=== PATIENT | female | born 1945 | race American Indian/Alaskan Native ===

== ENCOUNTER 2021-02-21 21:57 | Observation (INO) | payer MEDICARE ==
--- NOTE | 2021-02-21 23:01 | Emergency Department Report ---
ED Chest Pain HPI - General Stated Complaint: CHEST PAIN Time Seen by Provider: 02/21/21 22:54 - History of Present Illness Initial Comments: 75-year-old female, history of CVA with left-sided weakness, diabetes, hypertension, hypothyroidism, presents to ED from [facility] with complaint of chest pain, onset this evening. Patient states pain is located in the left chest, radiating down to the left arm. She denies any aggravating or alleviating factors. Patient denies any fever or cough. She reports some slight shortness of breath. She reports nausea as well. MD Complaint: chest pain -: This evening Onset: during rest Pain Location: left chest Pain Radiation: LUE Severity: mild Severity scale (0 -10): 3 Improves With: nothing Worsens With: nothing re: nausea, dyspnea Other Symptoms: denies: cough, fever - Related Data Home Medications Medication Instructions Recorded Confirmed Last Taken Candesartan Cilexetil [Atacand] 16 mg PO DAILY 04/12/20 04/12/20 Unknown Clopidogrel [Plavix] 75 mg PO QDAY 04/12/20 04/12/20 Unknown Glucagon (Human Recomb) [Glucagen] 1 mg SUB-Q QAM&QHS 04/12/20 04/12/20 Unknown Insulin Detemir [Levemir VIAL] 24 unit SUB-Q DAILY 04/12/20 04/12/20 Unknown Levothyroxine [Synthroid] 50 mcg PO DAILY 04/12/20 04/12/20 Unknown NIFEdipine [Nifedipine ER] 90 mg PO DAILY 04/12/20 04/12/20 Unknown Pantoprazole [Protonix TAB] 20 mg QDAY 04/12/20 04/12/20 Unknown Previous Rx's Medication Instructions Recorded Last Taken Type Aspirin EC [Halfprin EC] 81 mg PO QDAY #30 tablet. 04/16/20 Unknown Rx AtorvaSTATin [Lipitor] 40 mg PO QHS tablet 04/16/20 Unknown Rx Docusate Sodium [Colace CAP] 100 mg PO BID capsule 04/16/20 Unknown Rx Losartan [Cozaar] 100 mg PO QAM tablet 04/16/20 Unknown Rx Magnesium Hydroxide [Milk of 30 ml PO Q4H PRN oral.liqd 04/16/20 Unknown Rx Magnesia] Metoprolol Xl [Metoprolol 100 mg PO QDAY tablet 04/16/20 Unknown Rx SUCCINATE ER TAB] hydrALAZINE [Apresoline TAB] 25 mg PO Q8HR tablet 04/16/20 Unknown Rx levETIRAcetam [Keppra TAB] 1,000 mg PO BID #60 tab 04/16/20 Unknown Rx Allergies Allergy/AdvReac Type Severity Reaction Status Date / Time No Known Allergies Allergy Verified 02/22/21 01:57 Heart Score - HEART Score History: Slightly suspicious EKG: Non-specific Age: > 65 Risk factors: > 3 risk factors or hx of atherosclerotic disease Troponin: 1-3x normal limit HEART Score: 6 - EKG Read Time Time EKG Completed: 22:55 EKG Read Time: 22:59 ED Review of Systems ROS: Stated complaint: CHEST PAIN Other details as noted in HPI Comment: All other systems reviewed and negative Constitutional: denies: chills, fever Respiratory: shortness of breath Cardiovascular: chest pain Gastrointestinal: nausea ED Past Medical Hx - Past Medical History Hx Hypertension: Yes Hx Diabetes: Yes Hx Deep Vein Thrombosis: No Hx Arthritis: Yes Hx Seizures: Yes Hx Psychiatric Treatment: Yes (conversion d/o, with seizure and convulsions) Additional medical history: hypothyroidism, cerebral infarction, ulcerative colitis, - Surgical History Hx Pacemaker: No Hx Internal Defibrillator: No - Social History Smoking Status: Former Smoker - Medications Home Medications: Home Medications Medication Instructions Recorded Confirmed Last Taken Type Candesartan Cilexetil [Atacand] 16 mg PO DAILY 04/12/20 04/12/20 Unknown History Clopidogrel [Plavix] 75 mg PO QDAY 04/12/20 04/12/20 Unknown History Glucagon (Human Recomb) [Glucagen] 1 mg SUB-Q QAM&QHS 04/12/20 04/12/20 Unknown History Insulin Detemir [Levemir VIAL] 24 unit SUB-Q DAILY 04/12/20 04/12/20 Unknown History Levothyroxine [Synthroid] 50 mcg PO DAILY 04/12/20 04/12/20 Unknown History NIFEdipine [Nifedipine ER] 90 mg PO DAILY 04/12/20 04/12/20 Unknown History Pantoprazole [Protonix TAB] 20 mg QDAY 04/12/20 04/12/20 Unknown History Aspirin EC [Halfprin EC] 81 mg PO QDAY #30 tablet. 04/16/20 Unknown Rx AtorvaSTATin [Lipitor] 40 mg PO QHS tablet 04/16/20 Unknown Rx Docusate Sodium [Colace CAP] 100 mg PO BID capsule 04/16/20 Unknown Rx Losartan [Cozaar] 100 mg PO QAM tablet 04/16/20 Unknown Rx Magnesium Hydroxide [Milk of 30 ml PO Q4H PRN oral.liqd 04/16/20 Unknown Rx Magnesia] Metoprolol Xl [Metoprolol 100 mg PO QDAY tablet 04/16/20 Unknown Rx SUCCINATE ER TAB] hydrALAZINE [Apresoline TAB] 25 mg PO Q8HR tablet 04/16/20 Unknown Rx levETIRAcetam [Keppra TAB] 1,000 mg PO BID #60 tab 04/16/20 Unknown Rx ED Physical Exam - General General appearance: alert, in no apparent distress - Head Head exam: Present: atraumatic, normocephalic - Eye Eye exam: Present: normal appearance, EOMI - ENT ENT exam: Present: mucous membranes moist - Neck Neck exam: Present: normal inspection - Respiratory Respiratory exam: Present: normal lung sounds bilaterally. Absent: respiratory distress - Cardiovascular Cardiovascular Exam: Present: regular rate, normal rhythm - GI/Abdominal GI/Abdominal exam: Present: soft. Absent: distended, tenderness - Extremities Exam Extremities exam: Absent: pedal edema, calf tenderness - Neurological Exam Neurological exam: Present: alert, oriented X3, motor sensory deficit (Baseline left-sided weakness) - Psychiatric Psychiatric exam: Present: normal affect, normal mood - Skin Skin exam: Present: warm, dry, intact, normal color ED Course Vital Signs 02/21/21 02/21/21 02/21/21 23:00 23:16 23:30 Temperature 98.3 F Pulse Rate 74 70 67 Respiratory 18 18 17 Rate Blood Pressure 161/73 160/70 Blood Pressure 160/70 [Right] O2 Sat by Pulse 98 98 98 Oximetry 02/21/21 02/22/21 02/22/21 23:46 00:00 00:16 Temperature Pulse Rate 65 64 62 Respiratory 20 20 18 Rate Blood Pressure 157/68 153/73 143/69 Blood Pressure [Right] O2 Sat by Pulse 97 97 98 Oximetry 02/22/21 02/22/21 02/22/21 00:30 00:46 01:00 Temperature Pulse Rate 71 63 63 Respiratory 12 19 17 Rate Blood Pressure 158/75 149/68 146/68 Blood Pressure [Right] O2 Sat by Pulse 100 97 98 Oximetry 02/22/21 02/22/21 02/22/21 01:15 01:30 01:46 Temperature Pulse Rate 62 69 74 Respiratory 18 17 17 Rate Blood Pressure 144/64 160/70 151/72 Blood Pressure [Right] O2 Sat by Pulse 96 98 98 Oximetry 02/22/21 02/22/21 02/22/21 02:00 02:16 02:30 Temperature Pulse Rate 70 75 74 Respiratory 16 18 18 Rate Blood Pressure 151/72 151/72 180/70 Blood Pressure [Right] O2 Sat by Pulse 97 97 98 Oximetry 02/22/21 02/22/21 02/22/21 02:46 03:00 03:16 Temperature Pulse Rate 71 69 67 Respiratory 14 17 16 Rate Blood Pressure 159/70 157/64 145/59 Blood Pressure [Right] O2 Sat by Pulse 99 98 98 Oximetry 02/22/21 02/22/21 02/22/21 03:30 03:46 03:50 Temperature Pulse Rate 68 Respiratory 19 18 17 Rate Blood Pressure 140/62 136/55 136/55 Blood Pressure [Right] O2 Sat by Pulse 97 97 97 Oximetry 02/22/21 02/22/21 02/22/21 04:00 04:16 04:30 Temperature Pulse Rate Respiratory 16 6 L 16 Rate Blood Pressure 137/59 133/53 141/59 Blood Pressure [Right] O2 Sat by Pulse 97 97 Oximetry ED Medical Decision Making - Lab Data Result diagrams: 02/21/21 23:19 02/21/21 23:19 - EKG Data -: EKG Interpreted by Dc EKG shows normal: sinus rhythm, axis, intervals, QRS complexes Rate: normal - EKG Data When compared to previous EKG there are: no significant change Interpretation: nonspecific ST-T wave greg - Radiology Data Radiology results: report reviewed, image reviewed - Medical Decision Making 75-year-old female from [facility] with complaint of chest pain. EKG is unremarkable. Troponin slightly elevated at 0.05. Patient was admitted in April 2020. At that time she was seen by cardiology, who wanted to do a stress test on patient, but they could not because she refused due to pain from a sacral decubitus ulcer and stated that she cannot lie flat. Patient given aspirin here in the ED. States her pain is 3 out of 10. Patient will be ad mitted by hospitalist, Dr. Meyer, for further management. - Differential Diagnosis ACS, CHF, pneumonia Critical care attestation.: If time is entered above; I have spent that time in minutes in the direct care of this critically ill patient, excluding procedure time. ED Disposition Clinical Impression: Chest pain, Elevated troponin Disposition: OP ADMIT IP TO THIS HOSP Is pt being admited?: Yes Condition: Stable Time of Disposition: 01:27
--- NOTE | 2021-02-21 23:21 | XRay Report ---
CHEST 1 VIEW 02/21/2021 10:14 PM INDICATION / CLINICAL INFORMATION: chest pain. COMPARISON: 04/14/2020 FINDINGS: SUPPORT DEVICES: None. HEART / MEDIASTINUM: No significant abnormality. LUNGS / PLEURA: No significant pulmonary or pleural abnormality. No pneumothorax. ADDITIONAL FINDINGS: No significant additional findings. IMPRESSION: 1. No acute findings. Signer Name: Rashi Sprague MD Signed: 02/21/2021 11:16 PM Workstation Name: [id number]
[2021-02-22 00:21] LABS: Basophils % (Auto) 0.4 % (0.0-1.8); Eosinophils # (Auto) 0.3 K/mm3 (0.0-0.4); Eosinophils % (Auto) 4.7 % (0.0-4.3); Hematocrit 28.6 % (30.3-42.9); Hemoglobin 9.5 gm/dl (10.1-14.3); Lymphocytes # (Auto) 1.9 K/mm3 (1.2-5.4); Lymphocytes % (Auto) 28.3 % (13.4-35.0); Mean Corpuscular HGB Conc 33 % (30-34); Mean Corpuscular Volume 80 fl (79-97); Monocytes # (Auto) 0.3 K/mm3 (0.0-0.8); Monocytes % (Auto) 5.3 % (0.0-7.3); Platelet Count 317 K/mm3 (140-440); Red Blood Count 3.55 M/mm3 (3.65-5.03); Red Cell Distribution Width 15.6 % (13.2-15.2)
[2021-02-22 00:35] LABS: INR 1.48 (0.87-1.13); Partial Thromboplastin Time 37.5 Sec. (24.2-36.6)
[2021-02-22 00:37] LABS: BUN/Creatinine Ratio 20; Blood Urea Nitrogen 18 mg/dL (7-17); Calcium 8.7 mg/dL (8.4-10.2); Hemolysis Index 10
[2021-02-22] MEDS ORDERED: ASPIRIN 325 MG TAB PO ONE (00:54)
[2021-02-22] MEDS ORDERED: INSULIN REGULAR, HUMAN 100 UNITS/1 ML IV ONE (01:01)
--- NOTE | 2021-02-22 01:51 | History and Physical Report ---
History of Present Illness Date of examination: 02/21/21 Date of admission: 02/21/21 Chief complaint: chest pain History of present illness: 75-year-old female, history of CVA with left-sided weakness, diabetes, hypertension, hypothyroidism, presents to ED from [facility] with complaint of chest pain, onset this evening. Patient states pain is located in the left chest, radiating down to the left arm. She denies any aggravating or alleviating factors. Patient denies any fever or cough. She reports some slight shortness of breath. She reports nausea as well. ED work-up shows WBC 6.6, hemoglobin 9.5, platelets 317 sodium 137, potassium 4.7 creatinine 0.9 glucose 191 troponin 0 0.057 BNP 587 triglycerides 4 8. Chest x-ray done no acute finding patient seen at bedside in the ED. Reviewed medication record, vital signs and medical record. Patient came with from care home with chief complaint of chest pain. Patient has a history of CVA with left sided weakness. Past History Past Medical History: diabetes, heart failure, hyperthyroidism, hypertension Past Surgical History: No surgical history Social history: other (Lives in care home) Family history: no significant family history Medications and Allergies Allergies Allergy/AdvReac Type Severity Reaction Status Date / Time No Known Allergies Allergy Verified 02/22/21 01:57 Home Medications Medication Instructions Recorded Confirmed Last Taken Type Candesartan Cilexetil [Atacand] 16 mg PO DAILY 04/12/20 04/12/20 Unknown History Clopidogrel [Plavix] 75 mg PO QDAY 04/12/20 04/12/20 Unknown History Glucagon (Human Recomb) [Glucagen] 1 mg SUB-Q QAM&QHS 04/12/20 04/12/20 Unknown History Insulin Detemir [Levemir VIAL] 24 unit SUB-Q DAILY 04/12/20 04/12/20 Unknown Hi story Levothyroxine [Synthroid] 50 mcg PO DAILY 04/12/20 04/12/20 Unknown History NIFEdipine [Nifedipine ER] 90 mg PO DAILY 04/12/20 04/12/20 Unknown History Pantoprazole [Protonix TAB] 20 mg QDAY 04/12/20 04/12/20 Unknown History Aspirin EC [Halfprin EC] 81 mg PO QDAY #30 tablet. 04/16/20 Unknown Rx AtorvaSTATin [Lipitor] 40 mg PO QHS tablet 04/16/20 Unknown Rx Docusate Sodium [Colace CAP] 100 mg PO BID capsule 04/16/20 Unknown Rx Losartan [Cozaar] 100 mg PO QAM tablet 04/16/20 Unknown Rx Magnesium Hydroxide [Milk of 30 ml PO Q4H PRN oral.liqd 04/16/20 Unknown Rx Magnesia] Metoprolol Xl [Metoprolol 100 mg PO QDAY tablet 04/16/20 Unknown Rx SUCCINATE ER TAB] hydrALAZINE [Apresoline TAB] 25 mg PO Q8HR tablet 04/16/20 Unknown Rx levETIRAcetam [Keppra TAB] 1,000 mg PO BID #60 tab 04/16/20 Unknown Rx Review of Systems Ears, nose, mouth and throat: no epistaxis, no bleeding gums Cardiovascular: chest pain Respiratory: no shortness of breath Gastrointestinal: no melena Rectal: no hemorrhoids Musculoskeletal: muscle weakness Neurological: no convulsions Psychiatric: no hallucinations Hematologic/Lymphatic: no easy bruising, no easy bleeding Allergic/Immunologic: no urticaria Exam - Constitutional Vitals: Temp Pulse Resp BP Pulse Ox 98.3 F 74 18 160/70 98 02/21/21 23:00 02/21/21 23:00 02/21/21 23:00 02/21/21 23:00 02/21/21 23:00 General appearance: Present: no acute distress, well-nourished - EENT Eyes: Present: PERRL ENT: hearing intact, clear oral mucosa - Neck Neck: Present: supple, normal ROM - Respiratory Respiratory effort: normal Respiratory: bilateral: CTA - Cardiovascular Heart Sounds: Present: S1 & S2. Absent: rub, click - Extremities Extremities: pulses symmetrical, No edema Peripheral Pulses: within normal limits - Abdominal General gastrointestinal: Present: soft, non-tender, non-distended, normal bowel sounds Female genitourinary: Present: normal - Integumentary Integumentary: Present: clear, warm, dry - Musculoskeletal Musculoskeletal: gait normal, strength equal bilaterally - Psychiatric Psychiatric: other - Neurologic Neurologic: CNII-XII intact, moves all extremities - Allied Health Allied health notes reviewed: nursing, PT HEART Score - HEART Score EKG: Non-specific Age: > 65 Risk factors: > 3 risk factors or hx of atherosclerotic disease Troponin: Troponin T 0.057 ng/mL (0.00-0.029) H 02/21/21 23:19 Troponin: 1-3x normal limit Results - Labs CBC & Chem 7: 02/21/21 23:19 02/21/21 23:19 Labs: Abnormal lab results 02/21/21 02/21/21 02/21/21 Range/Units 23:19 23:19 23:19 RBC 3.55 L (3.65-5.03) M/mm3 Hgb 9.5 L (10.1-14.3) gm/dl Hct 28.6 L (30.3-42.9) % MCH 27 L (28-32) pg RDW 15.6 H (13.2-15.2) % Eos % (Auto) 4.7 H (0.0-4.3) % PT 18.4 H (12.2-14.9) Sec. INR 1.48 H (0.87-1.13) APTT 37.5 H (24.2-36.6) Sec. BUN 18 H (7-17) mg/dL Glucose 307 H (65-100) mg/dL Troponin T 0.057 H (0.00-0.029) ng/mL Assessment and Plan - Patient Problems (1) Chest pain Current Visit: Yes Status: Acute Plan to address problem: Sublingual nitro Aspirin, statin, and beta-tiana Chest x-ray no acute finding Elevated troponincardiology consult (2) Hypertension Current Visit: No Status: Chronic Qualifiers: Hypertension type: essential hypertension Qualified Code(s): I10 - Essential (primary) hypertension Plan to address problem: Monitor blood pressure Resume home antihypertensive As needed hydralazine (3) Hypothyroidism Current Visit: No Status: Chronic Plan to address problem: Resume home Synthroid (4) Elevated troponin Current Visit: Yes Status: Acute Plan to address problem: Elevated troponinstrend troponin Troponin was also elevated during the last admission Per patient medical record - was unable to do stress test at the time of the previous admission-patient was not stable Perpetual Inventory Clerk consulted will follow with plan of care (5) Diabetes Current Visit: No Status: Chronic Plan to address problem: Monitor blood sugar with sliding scale To resume home antihypertensive Check hemoglobin A1c. (6) DVT prophylaxis Current Visit: No Status: Acute Plan to address problem: Heparin drip
[2021-02-22] MEDS ORDERED: NITROGLYCERIN 0.4 MG TAB SUBL SL PRN (01:57)
[2021-02-22] MEDS ORDERED: ALUM-MAG HYDROXIDE-SIMETHICONE 200-200-20MG/5ML ORAL LIQD 30 ML PO PRN (01:57)
[2021-02-22] MEDS ORDERED: MAGNESIUM HYDROXIDE (MOM) ORAL LIQD UDC PO PRN (01:57)
[2021-02-22] MEDS ORDERED: traMADol 50 MG TAB PO PRN (01:57)
[2021-02-22] MEDS ORDERED: ACETAMINOPHEN 325 MG TAB PO PRN ×2 (01:57)
[2021-02-22] MEDS ORDERED: METOCLOPRAMIDE 10 MG/2 ML INJ IV PRN (01:57)
[2021-02-22] MEDS ORDERED: ONDANSETRON 4 MG/2 ML INJ IV PRN (01:57)
[2021-02-22] MEDS ORDERED: HEPARIN 10,000 UNITS/10 ML VIAL IV PRN (02:17)
[2021-02-22 02:48] LABS: Chol/HDL Ratio 5.18 %; HDL Cholesterol 33 mg/dL (40-59); LDL Cholesterol,Direct TNR mg/dL (50-130)
[2021-02-22] MEDS: HEPARIN/ 0.45% NACL DRIP 25,000 UNIT/500 ML BAG IV SCH (03:57)
[2021-02-22 05:52] LABS: Basophils % (Auto) 0.6 % (0.0-1.8); Eosinophils # (Auto) 0.5 K/mm3 (0.0-0.4); Eosinophils % (Auto) 6.2 % (0.0-4.3); Hematocrit 28.2 % (30.3-42.9); Hemoglobin 9.5 gm/dl (10.1-14.3); Lymphocytes # (Auto) 2.8 K/mm3 (1.2-5.4); Lymphocytes % (Auto) 35.5 % (13.4-35.0); Mean Corpuscular HGB Conc 34 % (30-34); Mean Corpuscular Volume 80 fl (79-97); Monocytes # (Auto) 0.5 K/mm3 (0.0-0.8); Monocytes % (Auto) 5.9 % (0.0-7.3); Platelet Count 309 K/mm3 (140-440); Red Blood Count 3.54 M/mm3 (3.65-5.03); Red Cell Distribution Width 15.9 % (13.2-15.2)
[2021-02-22] MEDS ORDERED: LEVOTHYROXINE 75 MCG TAB PO SCH (06:00)
[2021-02-22 06:02] LABS: INR 1.76 (0.87-1.13)
[2021-02-22 06:07] LABS: BUN/Creatinine Ratio 21; Blood Urea Nitrogen 19 mg/dL (7-17); Calcium 9.5 mg/dL (8.4-10.2); Hemolysis Index 6
[2021-02-22 06:11] LABS: Partial Thromboplastin Time 168.1 Sec. (24.2-36.6)
[2021-02-22] MEDS: hydrALAZINE 20 MG/1 ML INJ IV PRN (07:16)
--- NOTE | 2021-02-22 07:27 | Event Note ---
Date: 02/21/21 Code MET called-I went to patient room. pt nurse reports patient suddenly become unresponsivie but was able to arouse. At the time of assessment, patient is verbal and responsive to name and place. patient has hx of seizure that is ongoing for about a year. pt also has hx of CVA. PRN ativan and neurologist consult. CT of the head ordered.
[2021-02-22] MEDS ORDERED: LORazepam 2 MG/ML VIAL IV PRN (07:30)
--- NOTE | 2021-02-22 08:52 | Cat Scan Report ---
CT head/brain wo con INDICATION / CLINICAL INFORMATION: 75 years Female; AMS. TECHNIQUE: Routine CT head without contrast. All CT scans at this location are performed using CT dos e reduction for ALARA by means of automated exposure control. COMPARISON: The study is compared to previous CT of 04/14/2020. 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 There is no old infarct along the right ware radiata and basal ganglia wi th ex vacuo dilatation of the right lateral ventricle. The findings correlate with the earlier CT. Th e motion degrades the image quality at. However, there is no clear CT evidence of acute intracranial hemorrhage. There is again note of mild cerebral atrophy. ORBITS: No significant abnormality of visualized orbits. SINUSES / MASTOIDS: There is mild opacification along the posterior sphenoid sinuses was small air-fl uid levels. CRANIOCERVICAL JUNCTION: No significant abnormality. ADDITIONAL FINDINGS: None. IMPRESSION: 1. 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 2. There is no CT evidence of acute intracranial hemorrhage. Signer Name: Epi Norman MD Signed: 02/22/2021 8:48 AM Workstation Name: [id number]
[2021-02-22] MEDS: CLOPIDOGREL 75 MG TAB PO SCH (09:54)
[2021-02-22] MEDS: ASPIRIN EC 81 MG TAB PO SCH (09:54)
[2021-02-22] MEDS: LOSARTAN 50 MG TAB PO SCH (09:54)
[2021-02-22] MEDS: carvediloL 3.125 MG TAB PO SCH ×2 (09:54→21:55)
[2021-02-22] MEDS: PANTOPRAZOLE 40 MG TAB PO SCH (09:54)
[2021-02-22] MEDS: INSULIN LISPRO 100 UNIT/ML SUB-Q SCH ×3 (09:55→17:49)
--- NOTE | 2021-02-22 10:58 | Consultation ---
History of Present Illness Consult date: 02/22/21 Requesting physician: CELINA FERNANDO Consult reason: chest pain History of present illness: This patient is a 75-year-old female with a significant history of CVA with lingering left-sided weakness, diabetes, hypertension, hypothyroidism. She is previously unknown to our practice. Patient presents to [facility] ER after episode of chest pain and shortness of breath times several hours. Patient describes chest pain as left sided substernal and radiating down the left arm, characterized as sharp, and worse with inspiration. Cardiology is consulted for chest pain. At time of interview chest pain is resolved. Patient denies any weakness, dizziness, shortness of breath, abdominal pain, N/V/D, recent illness or known exposures. Patient states she has had previous AMI but denies surgery/cath. Patient is coming from [facility] and is rather poor historian. She is unsure if she is followed by cardiology or primary care. Echocardiogram reviewed (04/2020): Shows EF 55 to 60% Past History Past Medical History: diabetes, heart failure, hyperthyroidism, hypertension, other Past Surgical History: No surgical history Social history: other (Lives in snf) Family history: no significant family history Medications and Allergies Allergies Allergy/AdvReac Type Severity Reaction Status Date / Time No Known Allergies Allergy Verified 02/22/21 01:57 Home Medications Medication Instructions Recorded Confirmed Last Taken Type Candesartan Cilexetil [Atacand] 16 mg PO DAILY 04/12/20 04/12/20 Unknown History Clopidogrel [Plavix] 75 mg PO QDAY 04/12/20 04/12/20 Unknown History Glucagon (Human Recomb) [Glucagen] 1 mg SUB-Q QAM&QHS 04/12/20 04/12/20 Unknown History Insulin Detemir [Levemir VIAL] 24 unit SUB-Q DAILY 04/12/20 04/12/20 Unknown History Levothyroxine [Synthroid] 50 mcg PO DAILY 04/12/20 04/12/20 Unknown History NIFEdipine [Nifedipine ER] 90 mg PO DAILY 04/12/20 04/12/20 Unknown History Pantoprazole [Protonix TAB] 20 mg QDAY 04/12/20 04/12/20 Unknown History Aspirin EC [Halfprin EC] 81 mg PO QDAY #30 tablet. 08/14/20 Unknown Rx AtorvaSTATin [Lipitor] 40 mg PO QHS tablet 04/16/20 Unknown Rx Docusate Sodium [Colace CAP] 100 mg PO BID capsule 04/16/20 Unknown Rx Losartan [Cozaar] 100 mg PO QAM tablet 04/16/20 Unknown Rx Magnesium Hydroxide [Milk of 30 ml PO Q4H PRN oral.liqd 04/16/20 Unknown Rx Magnesia] Metoprolol Xl [Metoprolol 100 mg PO QDAY tablet 04/16/20 Unknown Rx SUCCINATE ER TAB] hydrALAZINE [Apresoline TAB] 25 mg PO Q8HR tablet 04/16/20 Unknown Rx levETIRAcetam [Keppra TAB] 1,000 mg PO BID #60 tab 04/16/20 Unknown Rx Active Meds: Active Medications Acetaminophen (Acetaminophen 325 Mg Tab) 650 mg PO Q4H PRN PRN Reason: Pain MILD(1-3)/Fever >100.5/CARRANZA Al Hydrox/Mg Hydrox/Simethicone (Alum-Mag Hydroxide-Simethicone [id number]/5ml Oral Liqd 30 Ml) 30 ml PO Q4H PRN PRN Reason: Indigestion Aspirin (Aspirin Ec 81 Mg Tab) 81 mg PO QDAY [facility] Last Admin: 02/22/21 09:54 Dose: 81 mg Documented by: Atorvastatin Calcium (Atorvastatin 40 Mg Tab) 40 mg PO QHS [facility] Carvedilol (Carvedilol 3.125 Mg Tab) 3.125 mg PO BID [facility] Last Admin: 02/22/21 09:54 Dose: 3.125 mg Documented by: Clopidogrel Bisulfate (Clopidogrel 75 Mg Tab) 75 mg PO QDAY [facility] Last Admin: 02/22/21 09:54 Dose: 75 mg Documented by: Heparin Sodium (Porcine) (Heparin 10,000 Units/10 Ml Vial) 3,100 unit 40 unit/kg (3100 unit) IV Q6H PRN PRN Reason: Anti-Xa Assay < 0.1 units/ml Last Admin: 02/22/21 03:56 Dose: 3,100 unit Documented by: Hydralazine HCl (Hydralazine 20 Mg/1 Ml Inj) 5 mg IV Q4HR PRN PRN Reason: SBP >/=165; DBP >/=100 Last Admin: 02/22/21 07:16 Dose: 5 mg Documented by: Heparin Sodium/Sodium Chloride (Heparin/ 0.45% Nacl-25,000 Unit/500 Ml) 25,000 unit in 500 mls @ 23 mls/hr IV TITR [facility]; Protocol Last Admin: 02/22/21 03:57 Dose: 1,150 units/hr, 23 mls/hr Documented by: Insulin Glargine (Insulin Glargine 100 Units/Ml) 24 units SUB-Q QHS [facility] Insulin Human Lispro (Insulin Lispro 100 Unit/Ml) 0 unit SUB-Q AC [facility]; Protocol Last Admin: 02/22/21 09:55 Dose: Not Given Documented by: Levothyroxine Sodium (Levothyroxine 75 Mcg Tab) 50 mcg PO DAILY@0600 [facility] Last Admin: 02/22/21 06:35 Dose: 50 mcg Documented by: Lorazepam (Lorazepam 2 Mg/Ml Vial) 2 mg IV Q4H PRN PRN Reason: Seizures Losartan Potassium (Losartan 50 Mg Tab) 100 mg PO QDAY [facility] Last Admin: 02/22/21 09:54 Dose: 100 mg Documented by: Magnesium Hydroxide (Magnesium Hydroxide (Mom) Oral Liqd Udc) 30 ml PO Q4H PRN PRN Reason: Constipation Metoclopramide HCl (Metoclopramide 10 Mg/2 Ml Inj) 10 mg IV Q6H PRN PRN Reason: Nausea And Vomiting Nitroglycerin (Nitroglycerin 0.4 Mg Tab Subl) 0.4 mg SL Q5M PRN PRN Reason: Chest Pain Ondansetron HCl (Ondansetron 4 Mg/2 Ml Inj) 4 mg IV Q8H PRN PRN Reason: Nausea And Vomiting Pantoprazole Sodium (Pantoprazole 40 Mg Tab) 40 mg PO QDAY [facility] Last Admin: 02/22/21 09:54 Dose: 40 mg Documented by: Sodium Chloride (Sodium Chloride 0.9% 10 Ml Flush Syringe) 10 ml IV BID [facility] Last Admin: 02/22/21 09:55 Dose: 10 ml Documented by: Sodium Chloride (Sodium Chloride 0.9% 10 Ml Flush Syringe) 10 ml IV PRN PRN PRN Reason: LINE FLUSH Tramadol HCl (Tramadol 50 Mg Tab) 50 mg PO Q6H PRN PRN Reason: Pain, Moderate (4-6) Review of Systems Constitutional: no weight loss, no weight gain, no fever, no chills, no sweats Ears, nose, mouth and throat: no ear pain, no ear discharge, no nose pain, no nasal congestion, no nasal discharge Cardiovascular: chest pain, shortness of breath, no orthopnea, no palpitations, no rapid/irregular heart beat, no edema, no syncope, no lightheadedness, no dyspnea on exertion, no paroxysmal nocturnal dyspnea, no claudication, no phlebitis, no high blood pressure, no leg edema Respiratory: shortness of breath, no cough, no hemoptysis, no dyspnea on exertion Gastrointestinal: no abdominal pain, no nausea, no vomiting, no diarrhea Genitourinary Female: no flank pain Musculoskeletal: no neck stiffness, no neck pain, no shooting arm pain, no arm numbness/tingling, no low back pain, no shooting leg pain Integumentary: no rash, no pruritis, no redness, no sores, no wounds Neurological: no head injury, no paralysis, no weakness, no parathesias, no numbness, no tingling, no seizures, no syncope Psychiatric: no anxiety Endocrine: no cold intolerance, no heat intolerance Hematologic/Lymphatic: no easy bruising, no easy bleeding Allergic/Immunologic: no urticaria Physical Examination Vital Signs Temp Pulse Resp BP Pulse Ox 98.3 F 74 18 160/70 98 02/21/21 23:00 02/21/21 23:00 02/21/21 23:00 02/21/21 23:00 02/21/21 23:00 General appearance: no acute distress HEENT: Positive: PERRL, Normocephaly, Mucus Membranes Moist Neck: Positive: neck supple, trachea midline Cardiac: Positive: Reg Rate and Rhythm, S1/S2 Lungs: Positive: Normal Exam, Normal Breath Sounds Neuro: Positive: Grossly Intact Abdomen: Positive: Unremarkable, Soft Skin: Negative: Rash, Wound Musculoskeletal: No Pain Extremities: Absent: upper extr. pulses, lower extr. pulses, edema Results 02/22/21 05:02 02/22/21 05:02 Coagulation 02/21/21 02/22/21 Range/Units 23:19 05:02 PT 18.4 H 21.0 H (12.2-14.9) Sec. INR 1.48 H 1.76 H (0.87-1.13) APTT 37.5 H 168.1 H* (24.2-36.6) Sec. Lipids 02/21/21 Range/Units 23:19 Triglycerides 408 H (2-149) mg/dL Cholesterol 171 (50-199) mg/dL HDL Cholesterol 33 L (40-59) mg/dL Cholesterol/HDL Ratio 5.18 % CBC 02/21/21 02/22/21 Range/Units 23:19 05:02 WBC 6.6 7.8 (4.5-11.0) K/mm3 RBC 3.55 L 3.54 L (3.65-5.03) M/mm3 Hgb 9.5 L 9.5 L (10.1-14.3) gm/dl Hct 28.6 L 28.2 L (30.3-42.9) % Plt Count 317 309 (140-440) K/mm3 Lymph # (Auto) 1.9 2.8 (1.2-5.4) K/mm3 [place] # (Auto) 0.3 0.5 (0.0-0.8) K/mm3 Eos # (Auto) 0.3 0.5 H (0.0-0.4) K/mm3 Baso # (Auto) 0.0 0.0 (0.0-0.1) K/mm3 Comprehensive Metabolic Panel 02/21/21 02/22/21 Range/Units 23:19 05:02 Sodium 137 139 (137-145) mmol/L Potassium 4.7 4.4 (3.6-5.0) mmol/L Chloride 100.6 101.0 (98-107) mmol/L Carbon Dioxide 26 26 (22-30) mmol/L BUN 18 H 19 H (7-17) mg/dL Creatinine 0.9 0.9 (0.6-1.2) mg/dL Glucose 307 H 181 H (65-100) mg/dL Calcium 8.7 9.5 (8.4-10.2) mg/dL - Imaging and Cardiology Echo: pending, report reviewed EKG: report reviewed, image reviewed EKG interpretations - Telemetry EKG Rhythm: Sinus Rhythm - EKG Sinus rhythms and dysrhythmias: sinus rhythm Assessment and Plan Chest pain * Chest pain is currently resolved. Twelve-lead ECG shows sinus rhythm 73 with no acute ischemic changes. Troponin is mildly elevated x1, subacute and nonspecific. Continue to trend CE's * Currently on heparin gtt. * Echocardiogram reviewed (04/2020): EF 55 to 60%. Repeat echocardiogram is pending. * Plan for Lexiscan MPI stress test in a.m. N.p.o. after midnight. Hypertension * Optimize antihypertensive regimen: Initiate hydralazine 50 mg 3 times daily, continue Coreg 3.125 mg twice daily, losartan 100 mg daily DVT prophylaxis * Heparin gtt. Stress test in a.m. N.p.o. after midnight. Will follow This patient was seen in conjunction with Dr. Yohan Aguiar who agrees with this assessment plan of care - Patient Problems (1) Chest pain Current Visit: Yes Status: Acute (2) Elevated troponin Current Visit: Yes Status: Acute (3) DVT prophylaxis Current Visit: Yes Status: Acute (4) Diabetes Current Visit: Yes Status: Chronic (5) Hypertension Current Visit: Yes Status: Chronic Qualifiers: Hypertension type: essential hypertension Qualified Code(s): I10 - Ess ential (primary) hypertension (6) Hypothyroidism Current Visit: Yes Status: Chronic
[2021-02-22] MEDS: hydrALAZINE 25 MG TAB PO SCH ×3 (12:58→21:54)
--- NOTE | 2021-02-22 14:14 | Progress Note ---
Assessment and Plan Assessment and plan: Chest pain Sz d/o. Hypertension Hypothyroidism Elebvated troponin DM II 02/22/21. Pt with code met this am due to hyporesponsiveness. CT reveals old infarct but no acute abnormality. Pt will be restarted on home seizure meds of Keppra. Cont. heparin drip and lexiscan in am. Cards following History Interval history: Pt with code met this am due to hyporesponsiveness Hospitalist Physical - Constitutional Vitals: Temp Pulse Resp BP Pulse Ox 98.3 F 87 16 176/86 98 02/22/21 06:58 02/22/21 12:58 02/22/21 06:58 02/22/21 12:58 02/22/21 06:58 General appearance: Present: no acute distress - EENT Eyes: Present: PERRL, EOM intact ENT: hearing intact, clear oral mucosa, dentition normal - Neck Neck: Present: supple, normal ROM - Respiratory Respiratory effort: normal Respiratory: bilateral: CTA - Cardiovascular Rhythm: regular Heart Sounds: Present: S1 & S2. Absent: gallop, rub - Extremities Extremities: no ischemia, No edema, Full ROM - Abdominal General gastrointestinal: soft, non-tender, non-distended, normal bowel sounds - Integumentary Integumentary: Present: clear, warm, dry - Neurologic Neurologic: CNII-XII intact, moves all extremities HEART Score - HEART Score EKG: Non-specific Age: > 65 Risk factors: > 3 risk factors or hx of atherosclerotic disease Troponin: Troponin T 0.057 ng/mL (0.00-0.029) H 02/21/21 23:19 Troponin: 1-3x normal limit Results - Labs CBC & Chem 7: 02/22/21 05:02 02/22/21 05:02 Labs: Laboratory Last Values WBC 7.8 K/mm3 (4.5-11.0) 02/22/21 05:02 RBC 3.54 M/mm3 (3.65-5.03) L 02/22/21 05:02 Hgb 9.5 gm/dl (10.1-14.3) L 02/22/21 05:02 Hct 28.2 % (30.3-42.9) L 02/22/21 05:02 MCV 80 fl (79-97) 02/22/21 05:02 MCH 27 pg (28-32) L 02/22/21 05:02 MCHC 34 % (30-34) 02/22/21 05:02 RDW 15.9 % (13.2-15.2) H 02/22/21 05:02 Plt Count 309 K/mm3 (140-440) 02/22/21 05:02 Lymph % (Auto) 35.5 % (13.4-35.0) H 02/22/21 05:02 [place] % (Auto) 5.9 % (0.0-7.3) 02/22/21 05:02 Eos % (Auto) 6.2 % (0.0-4.3) H 02/22/21 05:02 Baso % (Auto) 0.6 % (0.0-1.8) 02/22/21 05:02 Lymph # (Auto) 2.8 K/mm3 (1.2-5.4) 02/22/21 05:02 [place] # (Auto) 0.5 K/mm3 (0.0-0.8) 02/22/21 05:02 Eos # (Auto) 0.5 K/mm3 (0.0-0.4) H 02/22/21 05:02 Baso # (Auto) 0.0 K/mm3 (0.0-0.1) 02/22/21 05:02 Seg Neutrophils % 51.8 % (40.0-70.0) 02/22/21 05:02 Seg Neutrophils # 4.0 K/mm3 (1.8-7.7) 02/22/21 05:02 PT 21.0 Sec. (12.2-14.9) H 02/22/21 05:02 INR 1.76 (0.87-1.13) H 02/22/21 05:02 APTT 168.1 Sec. (24.2-36.6) H* 02/22/21 05:02 Heparin Anti-Xa Level > 2.00 U.I./ml (0.3-0.7) H 02/22/21 Unknown Sodium 139 mmol/L (137-145) 02/22/21 05:02 Potassium 4.4 mmol/L (3.6-5.0) 02/22/21 05:02 Chloride 101.0 mmol/L (98-107) 02/22/21 05:02 Carbon Dioxide 26 mmol/L (22-30) 02/22/21 05:02 Anion Gap 16 mmol/L 02/22/21 05:02 BUN 19 mg/dL (7-17) H 02/22/21 05:02 Creatinine 0.9 mg/dL (0.6-1.2) 02/22/21 05:02 Estimated GFR > 60 ml/min 02/22/21 05:02 BUN/Creatinine Ratio 21 % 02/22/21 05:02 Glucose 181 mg/dL (65-100) H 02/22/21 05:02 POC Glucose 186 mg/dL (70-105) H 02/22/21 06:58 Hemoglobin A1c 9.5 % (4-6) H 02/22/21 05:02 Calcium 9.5 mg/dL (8.4-10.2) 02/22/21 05:02 Troponin T 0.057 ng/mL (0.00-0.029) H 02/21/21 23:19 NT-Pro-B Natriuret Pep 587.7 pg/mL (0-900) 02/21/21 23:19 Triglycerides 408 mg/dL (2-149) H 02/21/21 23:19 Cholesterol 171 mg/dL (50-199) 02/21/21 23:19 LDL Cholesterol Direct TNR 02/21/21 23:19 HDL Cholesterol 33 mg/dL (40-59) L 02/21/21 23:19 Cholesterol/HDL Ratio 5.18 % 02/21/21 23:19 Mahajan/IV: Voiding Method External Female Catheter Active Medications - Current Medications Current Medications: Generic Name Dose Route Start Last Admin Trade Name Freq PRN Reason Stop Dose Admin Acetaminophen 650 mg 02/22/21 01:57 Acetaminophen 325 Mg Tab PO Q4H PRN Pain MILD(1-3)/Fever >100.5/CARRANZA Al Hydrox/Mg Hydrox/Simethicone 30 ml 02/22/21 01:57 Alum-Mag Hydroxide-Simethicone [id number] Oral Liqd 30 Ml PO Q4H PRN Indigestion Aspirin 81 mg 02/22/21 10:00 02/22/21 09:54 Aspirin Ec 81 Mg Tab PO 81 mg QDAY JORDON Administration Atorvastatin Calcium 40 mg 02/22/21 22:00 Atorvastatin 40 Mg Tab PO QHS JORDON Carvedilol 3.125 mg 02/22/21 10:00 02/22/21 09:54 Carvedilol 3.125 Mg Tab PO 3.125 mg BID JORDON Administration Clopidogrel Bisulfate 75 mg 02/22/21 10:00 02/22/21 09:54 Clopidogrel 75 Mg Tab PO 75 mg QDAY [facility] Administration Heparin Sodium (Porcine) 3,100 unit 02/22/21 02:17 02/22/21 03:56 Heparin 10,000 Units/10 Ml Vial 40 unit/kg (3100 unit) 3,100 unit IV Administration Q6H PRN Anti-Xa Assay < 0.1 units/ml Hydralazine HCl 5 mg 02/22/21 01:55 02/22/21 07:16 Hydralazine 20 Mg/1 Ml Inj IV 5 mg Q4HR PRN Administration SBP >/=165; DBP >/=100 Hydralazine HCl 50 mg 02/22/21 11:03 02/22/21 13:11 Hydralazine 25 Mg Tab PO Not Given Q8HR [facility] Heparin Sodium/Sodium Chloride 25,000 unit in 500 mls @ 23 mls/hr 02/22/21 03:00 02/22/21 13:07 Heparin/ 0.45% Nacl-25,000 Unit/500 Ml IV 1,000 units/hr TITR JORDON 20 mls/hr Titration Protocol 1,150 UNITS/HR Insulin Glargine 24 units 02/22/21 22:00 Insulin Glargine 100 Units/Ml SUB-Q QHS [facility] Insulin Human Lispro 0 unit 02/22/21 07:30 02/22/21 12:56 Insulin Lispro 100 Unit/Ml SUB-Q 3 unit AC [facility] Administration Protocol Levothyroxine Sodium 50 mcg 02/22/21 06:00 02/22/21 06:35 Levothyroxine 75 Mcg Tab PO 50 mcg DAILY@0600 [facility] Administration Lorazepam 2 mg 02/22/21 07:30 Lorazepam 2 Mg/Ml Vial IV Q4H PRN Seizures Losartan Potassium 100 mg 02/22/21 10:00 02/22/21 09:54 Losartan 50 Mg Tab PO 100 mg QDAY [facility] Administration Magnesium Hydroxide 30 ml 02/22/21 01:57 Magnesium Hydroxide (Mom) Oral Liqd Udc PO Q4H PRN Constipation Metoclopramide HCl 10 mg 02/22/21 01:57 Metoclopramide 10 Mg/2 Ml Inj IV Q6H PRN Nausea And Vomiting Nitroglycerin 0.4 mg 02/22/21 01:57 Nitroglycerin 0.4 Mg Tab Subl SL Q5M PRN Chest Pain Ondansetron HCl 4 mg 02/22/21 01:57 Ondansetron 4 Mg/2 Ml Inj IV Q8H PRN Nausea And Vomiting Pantoprazole Sodium 40 mg 02/22/21 10:00 02/22/21 09:54 Pantoprazole 40 Mg Tab PO 40 mg QDAY JORDON Administration Sodium Chloride 10 ml 02/22/21 10:00 02/22/21 09:55 Sodium Chloride 0.9% 10 Ml Flush Syringe IV 10 ml BID [facility]ORDON Administration Sodium Chloride 10 ml 02/22/21 01:57 Sodium Chloride 0.9% 10 Ml Flush Syringe IV PRN PRN LINE FLUSH Tramadol HCl 50 mg 02/22/21 01:57 Tramadol 50 Mg Tab PO Q6H PRN Pain, Moderate (4-6)
[2021-02-22] MEDS: levETIRAcetam 500 MG TAB PO SCH (21:54)
[2021-02-22] MEDS: INSULIN GLARGINE 100 UNITS/ML SUB-Q SCH (21:55)
[2021-02-22] MEDS ORDERED: NON-FORMULARY EACH (Levetiracetam [Keppra Tab] 1,000 MG Tablet) PO SCH (22:00)
[2021-02-22] MEDS ORDERED: hydrALAZINE 25 MG TAB PO SCH (22:00)
[2021-02-23] MEDS: hydrALAZINE 20 MG/1 ML INJ IV PRN ×2 (04:45→14:29)
[2021-02-23 05:38] LABS: Basophils # (Auto) 0.3 K/mm3 (0.0-0.1); Eosinophils # (Auto) 0.4 K/mm3 (0.0-0.4); Eosinophils % (Auto) 3.7 % (0.0-4.3); Hematocrit 30.2 % (30.3-42.9); Hemoglobin 9.8 gm/dl (10.1-14.3); Lymphocytes # (Auto) 1.7 K/mm3 (1.2-5.4); Lymphocytes % (Auto) 17.1 % (13.4-35.0); Mean Corpuscular HGB Conc 33 % (30-34); Mean Corpuscular Volume 81 fl (79-97); Monocytes # (Auto) 0.2 K/mm3 (0.0-0.8); Monocytes % (Auto) 2.4 % (0.0-7.3); Platelet Count 336 K/mm3 (140-440); Red Blood Count 3.73 M/mm3 (3.65-5.03); Red Cell Distribution Width 15.9 % (13.2-15.2)
[2021-02-23 06:13] LABS: Alanine Aminotransferase 11 units/L (7-56); Albumin 3.6 g/dL (3.9-5); BUN/Creatinine Ratio 17; Blood Urea Nitrogen 15 mg/dL (7-17); Calcium 8.9 mg/dL (8.4-10.2); Hemolysis Index 3
[2021-02-23] MEDS: LEVOTHYROXINE 50 MCG TAB PO SCH (06:54)
[2021-02-23] MEDS: hydrALAZINE 25 MG TAB PO SCH ×2 (06:55→14:29)
[2021-02-23] MEDS: HEPARIN/ 0.45% NACL DRIP 25,000 UNIT/500 ML BAG IV SCH (06:55)
[2021-02-23] MEDS ORDERED: REGADENOSON 0.4 MG/5 ML INJ IV ONE (08:15)
--- NOTE | 2021-02-23 08:21 | Discharge Summary ---
Providers - Providers Date of Admission: 02/22/21 01:42 Date of discharge: 02/23/21 Attending physician: KEYSHA CHESTER 02/22/21 Consult to Cardiac Rehabilitation [CONS] Routine Reason For Exam: Phase I 02/22/21 03:17 Consult to Physician [CONS] Routine Comment: Consulting Provider: LEANDRA OLIVERA Physician Instructions: Reason For Exam: chest pain 02/22/21 06:05 Consult to Wound/ET Nurse [CONS] Routine Reason For Exam: wound eval Primary care physician: RADAMES HULL Hospitalization Reason for admission: cp Condition: Stable Hospital course: 75-year-old female with a significant history of CVA with lingering left-sided weakness, diabetes, seizure disorder, hypertension, hypothyroidism presented to [facility] ER after episode of chest pain and shortness of breath times several hours. Patient described chest pain as left sided substernal and radiating down the left arm, characterized as sharp, and worse with inspiration. The patient was admitted with diagnosis of chest pain, diabetes mellitus type 2, chronic diastolic heart failure, hypothyroidism and hypertension. Cardiology was consulted for chest pain. Patient stated she has had previous AMI but denies surgery/cath. Patient is coming from [facility] and is rather poor historian. She is unsure if she is followed by cardiology or primary care. Cardiology recommended echocardiogram and Lexiscan stress test. Other complications during hospital stay included a seizure which occurred after admission and patient does have a history. Patient was restarted on her antiseizure medications and had no other episodes. Patient will undergo stress test today and if the stress test is found to be negative, patient will be discharged back to [facility] with diagnosis of GERD. Dedicated discharge time 35 minutes. Disposition: [id number]/[id number] [facility] C[facility] Final Discharge Diagnosis (Prints w/discharge instructions): chest pain, diabetes mellitus type 2, chronic diastolic heart failure, hypothyroidism and hypertension GERD Core Measure Documentation - Palliative Care Palliative Care/ Comfort Measures: Not Applicable - Core Measures Any of the following diagnoses?: none Exam - Constitutional Vitals: Temp Pulse Resp BP Pulse Ox 98.5 F 98 H 20 229/79 96 02/23/21 03:48 02/23/21 06:55 02/23/21 03:48 02/23/21 04:45 02/23/21 03:48 General appearance: Present: no acute distress, well-nourished - EENT Eyes: Present: PERRL ENT: hearing intact, clear oral mucosa - Neck Neck: Present: supple, normal ROM - Respiratory Respiratory effort: normal Respiratory: bilateral: CTA - Cardiovascular Heart Sounds: Present: S1 & S2. Absent: rub, click - Extremities Extremities: pulses symmetrical, No edema Peripheral Pulses: within normal limits - Abdominal General gastrointestinal: Present: soft, non-tender, non-distended, normal bowel sounds Female genitourinary: Present: normal - Integumentary Integumentary: Present: clear, warm, dry - Musculoskeletal Musculoskeletal: gait normal, strength equal bilaterally - Psychiatric Psychiatric: appropriate mood/affect, intact judgment & insight - Neurologic Neurologic: CNII-XII intact, moves all extremities Plan Activity: advance as tolerated Weight Bearing Status: Weight Bear as Tolerated Diet: low fat, low cholesterol, low salt Follow up with: RADAMES HULL MD [Primary Care Provider] - 3-5 Days
[2021-02-23] MEDS ORDERED: CANDESARTAN CILEXETIL 16 MG PO SCH (10:00)
[2021-02-23] MEDS ORDERED: NIFEDIPINE 90 MG PO SCH (10:00)
[2021-02-23] MEDS ORDERED: NIFEdipine XL 90 MG TAB PO SCH (10:00)
[2021-02-23] MEDS ORDERED: ASPIRIN EC 81 MG TAB PO SCH (10:00)
[2021-02-23] MEDS ORDERED: LEVOTHYROXINE 50 MCG TAB PO SCH (10:00)
[2021-02-23] MEDS ORDERED: NON-FORMULARY EACH (Insulin Detemir [Levemir Vial] 100 UNIT/ML Vial) SUB-Q SCH (10:00)
[2021-02-23] MEDS ORDERED: LOSARTAN 50 MG TAB PO SCH (10:00)
[2021-02-23] MEDS ORDERED: ASPIRIN EC 325 MG TAB PO SCH (10:00)
[2021-02-23] MEDS ORDERED: METOPROLOL SUCCINATE XL 100 MG TAB PO SCH (10:00)
[2021-02-23] MEDS ORDERED: PANTOPRAZOLE 20 MG TAB PO SCH (10:00)
[2021-02-23] MEDS: CLOPIDOGREL 75 MG TAB PO SCH (10:39)
[2021-02-23] MEDS: levETIRAcetam 500 MG TAB PO SCH ×2 (10:39→21:04)
[2021-02-23] MEDS: carvediloL 3.125 MG TAB PO SCH (10:39)
[2021-02-23] MEDS: ASPIRIN EC 81 MG TAB PO SCH (10:39)
[2021-02-23] MEDS: LOSARTAN 50 MG TAB PO SCH (10:39)
[2021-02-23] MEDS: PANTOPRAZOLE 40 MG TAB PO SCH (10:39)
[2021-02-23] MEDS: INSULIN LISPRO 100 UNIT/ML SUB-Q SCH ×3 (10:40→17:19)
[2021-02-23] MEDS ORDERED: carvediloL 12.5 MG TAB PO SCH (13:39)
--- NOTE | 2021-02-23 16:16 | Progress Note ---
Assessment and Plan Chest pain * Chest pain is currently resolved. Twelve-lead ECG shows sinus rhythm 73 with no acute ischemic changes. Troponin is mildly elevated x3, subacute, unchanging and nonspecific. Continue to trend CE's * Echocardiogram reviewed (02/22/2021): LVEF is 55 to 60%. Left ventricle is normal size. LV SF is normal. Mild LVH. Mild diastolic dysfunction. RV SF is normal. * Lexiscan MPI stress test is negative for reversible ischemia Hypertension * Optimize antihypertensive regimen: Initiate clonidine 0.1 mg twice daily, continue hydralazine 50 mg 3 times daily, increase nifedipine XL 92 twice daily, continue losartan 100 mg twice daily DVT prophylaxis * Heparin gtt. Patient currently in stable cardiac status. Stress test is negative. Anticipate discharge once hypertension is controlled. We will follow This patient was seen in conjunction with Dr. Yohan Aguiar who agrees with this assessment plan of care - Patient Problems (1) Chest pain Current Visit: Yes Status: Acute (2) Elevated troponin Current Visit: Yes Status: Acute (3) DVT prophylaxis Current Visit: Yes Status: Acute (4) Diabetes Current Visit: Yes Status: Chronic (5) Hypertension Current Visit: Yes Status: Chronic Qualifiers: Hypertension type: essential hypertension Qualified Code(s): I10 - Essential (primary) hypertension (6) Hypothyroidism Current Visit: Yes Status: Chronic Subjective Date of service: 02/23/21 Principal diagnosis: Chest Pain Interval history: Patient resting comfortably in bed. No shortness of breath or chest pain overnight Telemetry reviewed: Sinus tach 110s. No events Objective Last Vital Signs Temp 99.2 F 02/23/21 11:55 Pulse 121 H 02/23/21 11:55 Resp 19 02/23/21 11:55 BP 220/98 02/23/21 14:29 Pulse Ox 97 02/23/21 11:55 - Physical Examination HEENT: Positive: PERRL, Normocephaly, Mucus Membranes Moist Neck: Positive: neck supple, trachea midline Cardiac: Positive: Regular Rhythm, S1/S2 Lungs: Positive: Normal Exam, Normal Breath Sounds ( ) Neuro: Positive: Grossly Intact Abdomen: Positive: Unremarkable, Soft Skin: Negative: Rash, Wound Musculoskeletal: No Pain Extremities: Absent: upper extr. pulses, lower extr. pulses, edema - Labs and Meds Cardiac Enzymes 02/23/21 Range/Units 04:51 AST 17 (5-40) units/L CBC 06/23/21 Range/Units 04:51 WBC 10.2 (4.5-11.0) K/mm3 RBC 3.73 (3.65-5.03) M/mm3 Hgb 9.8 L (10.1-14.3) gm/dl Hct 30.2 L (30.3-42.9) % Plt Count 336 (140-440) K/mm3 Lymph # (Auto) 1.7 (1.2-5.4) K/mm3 [place] # (Auto) 0.2 (0.0-0.8) K/mm3 Eos # (Auto) 0.4 (0.0-0.4) K/mm3 Baso # (Auto) 0.3 H (0.0-0.1) K/mm3 Comprehensive Metabolic Panel 02/23/21 Range/Units 04:51 Sodium 137 (137-145) mmol/L Potassium 3.9 (3.6-5.0) mmol/L Chloride 100.7 (98-107) mmol/L Carbon Dioxide 27 (22-30) mmol/L BUN 15 (7-17) mg/dL Creatinine 0.9 (0.6-1.2) mg/dL Glucose 202 H (65-100) mg/dL Calcium 8.9 (8.4-10.2) mg/dL AST 17 (5-40) units/L ALT 11 (7-56) units/L Alkaline Phosphatase 103 (35-129) units/L Total Protein 8.2 (6.3-8.2) g/dL Albumin 3.6 L (3.9-5) g/dL - Imaging and Cardiology EKG: report reviewed, image reviewed Echo: report reviewed (Echocardiogram reviewed (02/22/2021): LVEF is 55 to 60%. Left ventricle is normal size. LV SF is normal. Mild LVH. Mild diastolic dysfunction. RV SF is normal.) - Telemetry EKG Rhythm: Sinus Tachycardia - EKG Sinus rhythms and dysrhythmias: sinus rhythm
[2021-02-23] MEDS ORDERED: cloNIDine 0.1 MG TAB PO SCH (17:00)
[2021-02-23] MEDS ORDERED: NIFEdipine XL 90 MG TAB PO ONE (18:02)
[2021-02-23] MEDS: NIFEdipine XL 90 MG TAB PO SCH ×2 (18:03→21:05)
[2021-02-23] MEDS ORDERED: hydrALAZINE 25 MG TAB PO ONE (18:58)
--- NOTE | 2021-02-23 19:18 | Electrocardiograph Report ---
[facility] Test Date: 2021-02-21 Test Time: 22:55:26 Pat Name: SHO HEAD Department: Room: A479 1 Gender: F [employer]er[employer] Supervisor: LAMBERT : 1945 Requested By: JA TURNER Order Number: [id number] Reading MD: Alicia Christianson Measurements Intervals [place] Rate: 73 P: 50 IN: 139 QRS: 5 QRSD: 79 T: 102 QT: 364 QTc: 402 Interpretive Statements Sinus rhythm Nonspecific T abnormalities, lateral leads No previous ECG available for comparison Electronically Signed On 02-23-2021 19:17:33 EDT by Alicia Christianson
--- NOTE | 2021-02-23 19:22 | Electrocardiograph Report ---
[facility] Test Date: 2021-02-22 Test Time: 07:48:56 Pat Name: SHO HEAD Department: Room: A479 1 Gender: F [employer] Instructor: DWAYNE : 1945 Requested By: CELINA FERNANDO Order Number: [id number] Reading MD: Alicia Christianson Measurements Intervals [place] Rate: 79 P: 50 IN: 143 QRS: -6 QRSD: 81 T: 20 QT: 396 QTc: 455 Interpretive Statements Sinus rhythm Compared to ECG 02/21/2021 22:55:26 No significant change Electronically Signed On 02-23-2021 19:21:51 EDT by Alicia Christianson
--- NOTE | 2021-02-23 19:23 | Electrocardiograph Report ---
[facility] Test Date: 2021-02-22 Test Time: 11:51:06 Pat Name: SHO HEAD Department: Room: A479 1 Gender: F Paid Search Specialist: DWAYNE : 1945 Requested By: CELINA FERNANDO Order Number: [id number] Reading MD: Alicia Christianson Measurements Intervals [place] Rate: 86 P: 78 CA: 133 QRS: 7 QRSD: 81 T: 69 QT: 372 QTc: 446 Interpretive Statements Sinus rhythm Compared to ECG 02/22/2021 07:48:56 No significant changes Electronically Signed On 02-23-2021 19:22:59 EDT by Alicia Christianson
[2021-02-23] MEDS: hydrALAZINE 100 MG TAB PO SCH (20:56)
[2021-02-23] MEDS: cloNIDine 0.2 MG TAB PO SCH (21:04)
[2021-02-23] MEDS: INSULIN GLARGINE 100 UNITS/ML SUB-Q SCH (21:06)
[2021-02-24 05:12] LABS: Hematocrit 28.5 % (30.3-42.9); Hemoglobin 9.4 gm/dl (10.1-14.3)
[2021-02-24] MEDS: LEVOTHYROXINE 50 MCG TAB PO SCH (05:20)
[2021-02-24] MEDS: INSULIN LISPRO 100 UNIT/ML SUB-Q SCH ×2 (08:00→11:56)
--- NOTE | 2021-02-24 08:04 | Progress Note ---
Assessment and Plan Assessment and plan: Chest pain Sz d/o. Accelerated hypertension Hypothyroidism Elebvated troponin DM II 02/22/21. Pt with code met this am due to hyporesponsiveness. CT reveals old infarct but no acute abnormality. Pt will be restarted on home seizure meds of Keppra. Cont. heparin drip and lexiscan in am. Cards following 02/23/2021. Patient with stress test that was found to be negative for ischemia. However, patient with accelerated hypertension with systolic blood pressure over 200. Patient's blood pressure medications were adjusted and discharge was suspended. Patient's blood pressure will be monitored overnight. History Interval history: Pt with code met this am due to hyporesponsiveness Hospitalist Physical - Constitutional Vitals: Temp Pulse Resp BP Pulse Ox 98.1 F 82 20 105/56 89 02/24/21 04:13 02/24/21 04:13 02/24/21 04:13 02/24/21 04:13 02/24/21 04:13 General appearance: Present: no acute distress, well-nourished - EENT Eyes: Present: PERRL, EOM intact ENT: hearing intact, clear oral mucosa, dentition normal - Neck Neck: Present: supple, normal ROM - Respiratory Respiratory effort: normal Respiratory: bilateral: CTA - Cardiovascular Rhythm: regular Heart Sounds: Present: S1 & S2. Absent: gallop, rub - Extremities Extremities: no ischemia, No edema, Full ROM - Abdominal General gastrointestinal: soft, non-tender, non-distended, normal bowel sounds - Integumentary Integumentary: Present: clear, warm, dry - Neurologic Neurologic: CNII-XII intact, moves all extremities HEART Score - HEART Score EKG: Non-specific Age: > 65 Risk factors: > 3 risk factors or hx of atherosclerotic disease Troponin: Troponin T 0.054 ng/mL (0.00-0.029) H 02/23/21 04:51 Troponin: 1-3x normal limit Results - Labs CBC & Chem 7: 02/24/21 04:28 02/23/21 04:51 Labs: Laboratory Last Values WBC 10.2 K/mm3 (4.5-11.0) 02/23/21 04:51 RBC 3.73 M/mm3 (3.65-5.03) 02/23/21 04:51 Hgb 9.4 gm/dl (10.1-14.3) L 02/24/21 04:28 Hct 28.5 % (30.3-42.9) L 02/24/21 04:28 MCV 81 fl (79-97) 02/23/21 04:51 MCH 26 pg (28-32) L 02/23/21 04:51 MCHC 33 % (30-34) 02/23/21 04:51 RDW 15.9 % (13.2-15.2) H 02/23/21 04:51 Plt Count 327 K/mm3 (140-440) 02/24/21 04:28 Lymph % (Auto) 17.1 % (13.4-35.0) 02/23/21 04:51 [place] % (Auto) 2.4 % (0.0-7.3) 02/23/21 04:51 Eos % (Auto) 3.7 % (0.0-4.3) 02/23/21 04:51 Baso % (Auto) 3.0 % (0.0-1.8) H 02/23/21 04:51 Lymph # (Auto) 1.7 K/mm3 (1.2-5.4) 02/23/21 04:51 [place] # (Auto) 0.2 K/mm3 (0.0-0.8) 02/23/21 04:51 Eos # (Auto) 0.4 K/mm3 (0.0-0.4) 02/23/21 04:51 Baso # (Auto) 0.3 K/mm3 (0.0-0.1) H 02/23/21 04:51 Seg Neutrophils % 73.8 % (40.0-70.0) H 02/23/21 04:51 Seg Neutrophils # 7.5 K/mm3 (1.8-7.7) 02/23/21 04:51 PT 21.0 Sec. (12.2-14.9) H 02/22/21 05:02 INR 1.76 (0.87-1.13) H 02/22/21 05:02 APTT 168.1 Sec. (24.2-36.6) H* 02/22/21 05:02 Heparin Anti-Xa Level 0.78 U.I./ml (0.3-0.7) H 02/23/21 18:18 Sodium 137 mmol/L (137-145) 02/23/21 04:51 Potassium 3.9 mmol/L (3.6-5.0) 02/23/21 04:51 Chloride 100.7 mmol/L (98-107) 02/23/21 04:51 Carbon Dioxide 27 mmol/L (22-30) 02/23/21 04:51 Anion Gap 13 mmol/L 02/23/21 04:51 BUN 15 mg/dL (7-17) 02/23/21 04:51 Creatinine 0.9 mg/dL (0.6-1.2) 02/23/21 04:51 Estimated GFR > 60 ml/min 02/23/21 04:51 BUN/Creatinine Ratio 17 % 02/23/21 04:51 Glucose 202 mg/dL (65-100) H 02/23/21 04:51 POC Glucose 260 mg/dL (70-105) H 02/24/21 07:46 Hemoglobin A1c 9.5 % (4-6) H 02/22/21 05:02 Calcium 8.9 mg/dL (8.4-10.2) 02/23/21 04:51 Total Bilirubin 0.20 mg/dL (0.1-1.2) 02/23/21 04:51 AST 17 units/L (5-40) 02/23/21 04:51 ALT 11 units/L (7-56) 02/23/21 04:51 Alkaline Phosphatase 103 units/L (35-129) 02/23/21 04:51 Troponin T 0.054 ng/mL (0.00-0.029) H 02/23/21 04:51 NT-Pro-B Natriuret Pep 587.7 pg/mL (0-900) 02/21/21 23:19 Total Protein 8.2 g/dL (6.3-8.2) 02/23/21 04:51 Albumin 3.6 g/dL (3.9-5) L 02/23/21 04:51 Albumin/Globulin Ratio 0.8 % 02/23/21 04:51 Triglycerides 408 mg/dL (2-149) H 02/21/21 23:19 Cholesterol 171 mg/dL (50-199) 06/21/21 23:19 LDL Cholesterol Direct TNR 06/21/21 23:19 HDL Cholesterol 33 mg/dL (40-59) L 02/21/21 23:19 Cholesterol/HDL Ratio 5.18 % 02/21/21 23:19 Mahajan/IV: Voiding Method External Female Catheter Active Medications - Current Medications Current Medications: Generic Name Dose Route Start Last Admin Trade Name Freq PRN Reason Stop Dose Admin Acetaminophen 650 mg 02/22/21 01:57 Acetaminophen 325 Mg Tab PO Q4H PRN Pain MILD(1-3)/Fever >100.5/CARRANZA Al Hydrox/Mg Hydrox/Simethicone 30 ml 02/22/21 01:57 Alum-Mag Hydroxide-Simethicone [id number]/5ml Oral Liqd 30 Ml PO Q4H PRN Indigestion Aspirin 81 mg 02/22/21 10:00 02/23/21 10:39 Aspirin Ec 81 Mg Tab PO 81 mg QDAY JORDON Administration Atorvastatin Calcium 40 mg 02/22/21 22:00 02/23/21 21:05 Atorvastatin 40 Mg Tab PO 40 mg QHS JORDON Administration Clonidine HCl 0.2 mg 02/23/21 22:00 02/23/21 21:04 Clonidine 0.2 Mg Tab PO 0.2 mg Q12HR JORDON Administration Clopidogrel Bisulfate 75 mg 02/22/21 10:00 02/23/21 10:39 Clopidogrel 75 Mg Tab PO 75 mg QDAY JORDON Administration Heparin Sodium (Porcine) 3,100 unit 02/22/21 02:17 02/22/21 03:56 Heparin 10,000 Units/10 Ml Vial 40 unit/kg (3100 unit) 3,100 unit IV Administration Q6H PRN Anti-Xa Assay < 0.1 units/ml Hydralazine HCl 5 mg 02/22/21 01:55 02/23/21 14:29 Hydralazine 20 Mg/1 Ml Inj IV 5 mg Q4HR PRN Administration SBP >/=165; DBP >/=100 Hydralazine HCl 100 mg 02/23/21 20:00 02/23/21 20:56 Hydralazine 100 Mg Tab PO 100 mg TID JORDON Administration Heparin Sodium/Sodium Chloride 25,000 unit in 500 mls @ 23 mls/hr 02/22/21 03:00 02/23/21 06:59 Heparin/ 0.45% Nacl-25,000 Unit/500 Ml IV 850 units/hr TITR JORDON 17 mls/hr Titration Protocol 1,150 UNITS/HR Insulin Glargine 24 units 02/22/21 22:00 02/23/21 21:06 Insulin Glargine 100 Units/Ml SUB-Q 24 units QHS JORDON Administration Insulin Human Lispro 0 unit 02/22/21 07:30 02/23/21 17:19 Insulin Lispro 100 Unit/Ml SUB-Q 2 unit AC JORDON Administration Protocol Levetiracetam 1,000 mg 02/22/21 22:00 02/23/21 21:04 Levetiracetam 500 Mg Tab PO 1,000 mg BID JORDON Administration Levothyroxine Sodium 50 mcg 02/23/21 06:00 02/24/21 05:20 Levothyroxine 50 Mcg Tab PO 50 mcg DAILY@0600 [facility] Administration Lorazepam 2 mg 02/22/21 07:30 Lorazepam 2 Mg/Ml Vial IV Q4H PRN Seizures Losartan Potassium 100 mg 02/22/21 10:00 02/23/21 10:39 Losartan 50 Mg Tab PO 100 mg QDAY [facility] Administration Magnesium Hydroxide 30 ml 02/22/21 01:57 Magnesium Hydroxide (Mom) Oral Liqd Udc PO Q4H PRN Constipation Metoclopramide HCl 10 mg 02/22/21 01:57 Metoclopramide 10 Mg/2 Ml Inj IV Q6H PRN Nausea And Vomiting Nifedipine 90 mg 02/23/21 22:00 02/23/21 21:05 Nifedipine Xl 90 Mg Tab PO 90 mg BID JORDON Administration Nitroglycerin 0.4 mg 02/22/21 01:57 Nitroglycerin 0.4 Mg Tab Subl SL Q5M PRN Chest Pain Ondansetron HCl 4 mg 02/22/21 01:57 02/23/21 17:23 Ondansetron 4 Mg/2 Ml Inj IV 4 mg Q8H PRN Administration Nausea And Vomiting Pantoprazole Sodium 40 mg 02/22/21 10:00 02/23/21 10:39 Pantoprazole 40 Mg Tab PO 40 mg QDAY [facility] Administration Sodium Chloride 10 ml 02/22/21 10:00 02/23/21 21:11 Sodium Chloride 0.9% 10 Ml Flush Syringe IV Not Given BID [facility] Sodium Chloride 10 ml 02/22/21 01:57 Sodium Chloride 0.9% 10 Ml Flush Syringe IV PRN PRN LINE FLUSH Tramadol HCl 50 mg 02/22/21 01:57 Tramadol 50 Mg Tab PO Q6H PRN Pain, Moderate (4-6)
[2021-02-24] MEDS: PANTOPRAZOLE 40 MG TAB PO SCH (09:46)
[2021-02-24] MEDS: CLOPIDOGREL 75 MG TAB PO SCH (09:46)
[2021-02-24] MEDS: levETIRAcetam 500 MG TAB PO SCH (09:46)
[2021-02-24] MEDS: ASPIRIN EC 81 MG TAB PO SCH (09:46)
[2021-02-24] MEDS: hydrALAZINE 100 MG TAB PO SCH (09:47)
[2021-02-24] MEDS: cloNIDine 0.2 MG TAB PO SCH (09:47)
[2021-02-24 09:48] VITALS: BP 110/53
[2021-02-24] MEDS: NIFEdipine XL 90 MG TAB PO SCH (09:48)
[2021-02-24] MEDS: LOSARTAN 50 MG TAB PO SCH (09:48)
--- NOTE | 2021-02-24 11:08 | Treadmill Report ---
DATE OF SERVICE: 02/22/2021 NUCLEAR PERFUSION SCAN REFERRING PHYSICIAN: Hospitalist erika. PROTOCOL: The patient was brought to the stress lab in postabsorptive state, given 10 mCi of technetium at rest. The patient had rest imaging. The patient had Lexiscan stress test. At peak stress, the patient given 26 mCi technetium 99m. Shortly thereafter, the patient had stress imaging. Raw imaging reveals mild GI artifact. No significant motion effect. SPECT images examined carefully in the horizontal long axis, vertical long axis, and short axis views. There is normal homogeneous uptake of radioisotope in all reported segments. No evidence of significant fixed or reversible perfusion defect, suggestive of prior infarction or ischemia. Gated wall motion reveals normal systolic thickening, calculated ejection fraction of 66%. No TID. CONCLUSIONS: 1. Normal myocardial perfusion scan without evidence of active ischemia or prior infarction. 2. Normal left ventricular systolic performance without evidence of transient ischemic dilatation or stress induced segmental wall motion abnormalities. TID: [id number] RECEIPT: [id number] [facility]/ALL
--- NOTE | 2021-02-24 17:00 | Progress Note ---
Assessment and Plan BP has significantly improved this AM. Currently stable cardiac status. Pt may be discharged from a Cardiology standpoint. Recommend follow-up with Dr. Georgia Aguiar in 1-2 weeks ([phone]). Pt seen in conjunction with Dr. Georgia Aguiar, who agrees with the assessment and plan of care. - Patient Problems (1) Chest pain Status: Resolved (2) Elevated troponin Status: Acute (3) Accelerated hypertension Status: Acute (4) DM2 (diabetes mellitus, type 2) Status: Chronic (5) Hypothyroidism Status: Chronic (6) Seizures Status: Chronic (7) History of CVA (cerebrovascular accident) Status: Chronic Subjective Date of service: 02/24/21 Principal diagnosis: Chest Pain Interval history: Resting comfortably in bed. States she feels great. No cardiac complaints. No tele data available for review. Objective Last Vital Signs Temp 98.5 F 02/24/21 07:43 Pulse 89 02/24/21 10:00 Resp 19 02/24/21 10:00 BP 110/53 02/24/21 09:48 Pulse Ox 96 02/24/21 09:43 - Physical Examination General: No Apparent Distress HEENT: Positive: EOMI, Normocephaly, Mucus Membranes Moist Neck: Positive: neck supple, trachea midline. Negative: JVD/HJR Cardiac: Positive: Reg Rate and Rhythm, S1/S2 Lungs: Positive: clear to auscultation Neuro: Positive: Grossly Intact Abdomen: Positive: Soft. Negative: Tender Skin: Negative: Rash Musculoskeletal: No Pain Extremities: Present: upper extr. pulses, lower extr. pulses. Absent: edema - Labs and Meds CBC 02/24/21 Range/Units 04:28 Hgb 9.4 L (10.1-14.3) gm/dl Hct 28.5 L (30.3-42.9) % Plt Count 327 (140-440) K/mm3 - Imaging and Cardiology EKG: report reviewed, image reviewed Pharmacologic stress test: report reviewed (02/22/2021 - negative for ischemia) Echo: report reviewed (02/22/2021 - EF 55-60%, mild LVH, mild diastolic dysfxn) - EKG Sinus rhythms and dysrhythmias: sinus rhythm
== END 2021-02-24 13:36 ==
LOC: ED 21:57 → 4A 02-22 01:42
PROVIDERS: ADMIT Internal Medicine Geriatric Medicine; ATTEND Hospitalist
DX: R07.89 Other chest pain (principal); Z20.822 Contact with and (suspected) exposure to COVID-19; I11.0 Hypertensive heart disease with heart failure; I50.9 Heart failure, unspecified; E03.9 Hypothyroidism, unspecified; E11.9 Type 2 diabetes mellitus without complications; R77.8 Other specified abnormalities of plasma proteins; E05.90 Thyrotoxicosis, unspecified without thyrotoxic crisis or storm; M19.90 Unspecified osteoarthritis, unspecified site; R56.9 Unspecified convulsions; Z79.4 Long term (current) use of insulin; Z79.82 Long term (current) use of aspirin; Z87.891 Personal history of nicotine dependence; Z86.73 Personal history of transient ischemic attack (TIA), and cerebral infarction without residual deficits
CPT/HCPCS: 36415; 70450; 71045; 78452; 80048; 80053; 80061; 82962; 83036; 83880; 84484; 85014; 85018; 85025; 85049; 85520; 85610; 85730; 93005; 93017; 93306; 96365; 96366; 96375; 96376; 99285; A9270; A9502; G0378; J0360; J1644; J2405; J2785; U0003; J1815

== ENCOUNTER 2021-05-20 13:51 | Observation (INO) | payer MEDICARE ==
--- NOTE | 2021-05-20 14:52 | XRay Report ---
CHEST 1 VIEW 05/20/2021 2:22 PM INDICATION / CLINICAL INFORMATION: Chest Pain. COMPARISON: 02/21/2021 FINDINGS: SUPPORT DEVICES: None. HEART / MEDIASTINUM: No significant abnormality. LUNGS / PLEURA: No acute findings. Stable linear scarring in the right midlung. No pneumothorax. ADDITIONAL FINDINGS: No significant additional findings. IMPRESSION: 1. No acute findings. Signer Name: Maximiliano Leyva MD Signed: 05/20/2021 2:48 PM Workstation Name: [id number]
[2021-05-20 14:59] LABS: Basophils # (Auto) 0.1 K/mm3 (0.0-0.1); Basophils % (Auto) 0.7 % (0.0-1.8); Eosinophils # (Auto) 0.4 K/mm3 (0.0-0.4); Hematocrit 32.3 % (30.3-42.9); Hemoglobin 10.5 gm/dl (10.1-14.3); Lymphocytes # (Auto) 1.7 K/mm3 (1.2-5.4); Lymphocytes % (Auto) 14.5 % (13.4-35.0); Mean Corpuscular HGB Conc 33 % (30-34); Mean Corpuscular Volume 79 fl (79-97); Monocytes # (Auto) 0.4 K/mm3 (0.0-0.8); Monocytes % (Auto) 3.5 % (0.0-7.3); Platelet Count 463 K/mm3 (140-440); Red Cell Distribution Width 15.4 % (13.2-15.2)
[2021-05-20 15:12] LABS: Alanine Aminotransferase 21 units/L (7-56); Albumin 3.6 g/dL (3.9-5); BUN/Creatinine Ratio 17; Blood Urea Nitrogen 15 mg/dL (7-17); Calcium 8.7 mg/dL (8.4-10.2); Hemolysis Index 0
[2021-05-20 15:42] LABS: Chol/HDL Ratio 2.88 %; HDL Cholesterol 36 mg/dL (40-59); LDL Cholesterol,Direct 48 mg/dL (50-130)
--- NOTE | 2021-05-20 16:40 | Emergency Department Report ---
ED Chest Pain HPI - General Chief Complaint: Chest Pain Stated Complaint: CHEST DISCOMFORT PUI?: No Time Seen by Provider: 05/20/21 14:04 Source: EMS, old records reviewed (SNF documentation also reviewed) Mode of arrival: Stretcher Limitations: Physical Limitation - History of Present Illness Initial Comments: Chief complaint: My chest achea a little bit HPI: This is a 75-year-old female with history of CVA, decubitus ulcer, hypothyroidism, seizure, diabetes, ulcerative colitis who presents from [facility] with chest pain 5 out of 10. Achy pain since this morning. No associated with eating movement or exertion. She denies headache, fever, leg pain, shortness of breath, abdominal pain, vomiting. Patient was evaluated at this hospital 3 months ago for chest pain. I have reviewed electronic record. Patient underwent myocardial perfusion scan. February 22, 2021 normal myocardial perfusion scan without evidence of active ischemia or prior infarction, normal LV systolic performance without evidence of ischemic dilatation or stress-induced segmental wall abnormality February 22, 2021 LV systolic function normal, mild concentric LVH, mild diastolic dysfunction Patient received 2 doses of [employer] Covid vaccine in September. Complaint: chest pain -: Gradual, This morning Pain Radiation: none Severity: mild Severity scale (0 -10): 6 Quality: aching Consistency: constant Improves With: nothing Worsens With: nothing Treatments Prior to Arrival: other (EMS transport) - Related Data Home Medications Medication Instructions Recorded Confirmed Last Taken RX: Candesartan Cilexetil [Atacand] 16 mg PO DAILY 04/12/20 02/23/21 Unknown RX: Clopidogrel [Plavix] 75 mg PO QDAY 04/12/20 02/23/21 Unknown RX: Glucagon (Human Recomb) 1 mg SUB-Q QAM&QHS 04/12/20 02/23/21 Unknown [Glucagen] RX: Insulin Detemir [Levemir VIAL] 24 unit SUB-Q DAILY 04/12/20 02/23/21 Unknown RX: Levothyroxine [Synthroid] 50 mcg PO DAILY 04/12/20 02/23/21 Unknown RX: NIFEdipine [Nifedipine ER] 90 mg PO DAILY 04/12/20 02/23/21 Unknown RX: Pantoprazole [Protonix TAB] 20 mg QDAY 04/12/20 02/23/21 Unknown Previous Rx's Medication Instructions Recorded Last Taken Type RX: Aspirin EC [Halfprin EC] 81 mg PO QDAY #30 tablet. 04/16/20 Unknown Rx RX: AtorvaSTATin [Lipitor] 40 mg PO QHS tablet 04/16/20 Unknown Rx RX: Docusate Sodium [Colace CAP] 100 mg PO BID capsule 04/16/20 Unknown Rx RX: Losartan [Cozaar] 100 mg PO QAM tablet 04/16/20 Unknown Rx RX: Magnesium Hydroxide [Milk of 30 ml PO Q4H PRN oral.liqd 04/16/20 Unknown Rx Magnesia] RX: Metoprolol Xl [Metoprolol 100 mg PO QDAY tablet 04/16/20 Unknown Rx SUCCINATE ER TAB] RX: hydrALAZINE [Apresoline TAB] 25 mg PO Q8HR tablet 04/16/20 Unknown Rx RX: levETIRAcetam [Keppra TAB] 1,000 mg PO BID #60 tab 04/16/20 Unknown Rx RX: Acetaminophen [Acetaminophen 650 mg PO Q4H PRN tablet 02/23/21 Unknown Rx TAB] RX: Antacid [Alum-Mag 30 ml PO Q4H PRN oral.liqd 02/23/21 Unknown Rx Hydrox-Simeth [phone]/5Ml] RX: Aspirin EC [Halfprin EC] 81 mg PO QDAY tablet 02/23/21 Unknown Rx RX: AtorvaSTATin [Lipitor] 40 mg PO QHS tablet 02/23/21 Unknown Rx RX: Clopidogrel [Plavix] 75 mg PO QDAY tablet 02/23/21 Unknown Rx RX: Insulin Glargine [Lantus VIAL] 24 units SUB-Q QHS units 02/23/21 Unknown Rx RX: Levothyroxine [Synthroid] 50 mcg PO DAILY@0600 tablet 02/23/21 Unknown Rx RX: Losartan [Cozaar] 100 mg PO QDAY tablet 02/23/21 Unknown Rx RX: Magnesium Hydroxide [Milk of 30 ml PO Q4H PRN oral.liqd 02/23/21 Unknown Rx Magnesia] RX: Pantoprazole [Protonix TAB] 40 mg PO QDAY tablet 02/23/21 Unknown Rx RX: carvediloL [Coreg] 3.125 mg PO BID tablet 02/23/21 Unknown Rx RX: hydrALAZINE [Apresoline TAB] 50 mg PO Q8HR tablet 02/23/21 Unknown Rx RX: traMADoL [Ultram 50 MG tab] 50 mg PO Q6H PRN tablet 02/23/21 Unknown Rx Allergies Allergy/AdvReac Type Severity Reaction Status Date / Time No Known Allergies Allergy Verified 02/22/21 01:57 Heart Score - HEART Score History: Slightly suspicious EKG: Non-specific Age: > 65 Risk factors: 1-2 risk factors Troponin: < normal limit HEART Score: 4 - EKG Read Time Time EKG Completed: 14:21 EKG Read Time: 14:21 - Critical Actions Critical Actions: 4-6 pts:12-16.6% risk of adverse cardiac event. Should be admitted ED Review of Systems ROS: Stated complaint: CHEST DISCOMFORT Other details as noted in HPI Comment: All other systems reviewed and negative Constitutional: denies: chills, fever, malaise Respiratory: denies: cough, shortness of breath Cardiovascular: chest pain Endocrine: denies: excessive sweating Gastrointestinal: denies: abdominal pain, nausea, vomiting, diarrhea Skin: denies: rash, lesions ED Past Medical Hx - Past Medical History Previous Medical History?: Yes Hx Hypertension: Yes Hx Diabetes: Yes Hx Deep Vein Thrombosis: No Hx Arthritis: Yes Hx Seizures: Yes Hx Psychiatric Treatment: Yes (conversion d/o, with seizure and convulsions) Additional medical history: hypothyroidism, cerebral infarction, ulcerative colitis, - Surgical History Hx Pacemaker: No Hx Internal Defibrillator: No - Social History Smoking Status: Never Smoker Substance Use Type: None - Medications Home Medications: Home Medications Medication Instructions Recorded Confirmed Last Taken Type RX: Candesartan Cilexetil [Atacand] 16 mg PO DAILY 04/12/20 02/23/21 Unknown History RX: Clopidogrel [Plavix] 75 mg PO QDAY 04/12/20 02/23/21 Unknown History RX: Glucagon (Human Recomb) 1 mg SUB-Q QAM&QHS 04/12/20 02/23/21 Unknown History [Glucagen] RX: Insulin Detemir [Levemir VIAL] 24 unit SUB-Q DAILY 04/12/20 02/23/21 Unknown History RX: Levothyroxine [Synthroid] 50 mcg PO DAILY 04/12/20 02/23/21 Unknown History RX: NIFEdipine [Nifedipine ER] 90 mg PO DAILY 04/12/20 02/23/21 Unknown History RX: Pantoprazole [Protonix TAB] 20 mg QDAY 04/12/20 02/23/21 Unknown History RX: Aspirin EC [Halfprin EC] 81 mg PO QDAY #30 tablet. 04/16/20 02/23/21 Unknown Rx RX: AtorvaSTATin [Lipitor] 40 mg PO QHS tablet 04/16/20 02/23/21 Unknown Rx RX: Docusate Sodium [Colace CAP] 100 mg PO BID capsule 04/16/20 02/23/21 Unkn own Rx RX: Losartan [Cozaar] 100 mg PO QAM tablet 04/16/20 02/23/21 Unknown Rx RX: Magnesium Hydroxide [Milk of 30 ml PO Q4H PRN oral.liqd 04/16/20 02/23/21 Unknown Rx Magnesia] RX: Metoprolol Xl [Metoprolol 100 mg PO QDAY tablet 04/16/20 02/23/21 Unknown Rx SUCCINATE ER TAB] RX: hydrALAZINE [Apresoline TAB] 25 mg PO Q8HR tablet 04/16/20 02/23/21 Unknown Rx RX: levETIRAcetam [Keppra TAB] 1,000 mg PO BID #60 tab 04/16/20 02/23/21 Unknown Rx RX: Acetaminophen [Acetaminophen 650 mg PO Q4H PRN tablet 02/23/21 Unknown Rx TAB] RX: Antacid [Alum-Mag 30 ml PO Q4H PRN oral.liqd 02/23/21 Unknown Rx Hydrox-Simeth [phone]/5Ml] RX: Aspirin EC [Halfprin EC] 81 mg PO QDAY tablet 02/23/21 Unknown Rx RX: AtorvaSTATin [Lipitor] 40 mg PO QHS tablet 02/23/21 Unknown Rx RX: Clopidogrel [Plavix] 75 mg PO QDAY tablet 02/23/21 Unknown Rx RX: Insulin Glargine [Lantus VIAL] 24 units SUB-Q QHS units 02/23/21 Unknown Rx RX: Levothyroxine [Synthroid] 50 mcg PO DAILY@0600 tablet 02/23/21 Unknown Rx RX: Losartan [Cozaar] 100 mg PO QDAY tablet 02/23/21 Unknown Rx RX: Magnesium Hydroxide [Milk of 30 ml PO Q4H PRN oral.liqd 02/23/21 Unknown Rx Magnesia] RX: Pantoprazole [Protonix TAB] 40 mg PO QDAY tablet 02/23/21 Unknown Rx RX: carvediloL [Coreg] 3.125 mg PO BID tablet 02/23/21 Unknown Rx RX: hydrALAZINE [Apresoline TAB] 50 mg PO Q8HR tablet 02/23/21 Unknown Rx RX: traMADoL [Ultram 50 MG tab] 50 mg PO Q6H PRN tablet 02/23/21 Unknown Rx ED Physical Exam - General Limitations: Physical Limitation General appearance: alert, in no apparent distress, other (GCS 15, no acute distress) - Head Head exam: Present: atraumatic, normocephalic - Eye Eye exam: Present: normal appearance - ENT ENT exam: Present: mucous membranes moist - Neck Neck exam: Present: normal inspection, full ROM - Respiratory Respiratory exam: Present: normal lung sounds bilaterally. Absent: respiratory distress, wheezes, rales, rhonchi - Cardiovascular Cardiovascular Exam: Present: normal rhythm, tachycardia, normal heart sounds. Absent: systolic murmur, diastolic murmur, rubs, gallop - GI/Abdominal GI/Abdominal exam: Present: soft, normal bowel sounds. Absent: distended, tenderness, guarding, rebound - Extremities Exam Extremities exam: Present: other (Cachectic lower extremities) - Neurological Exam Neurological exam: Present: alert, oriented X3 - Psychiatric Psychiatric exam: Present: normal affect, normal mood - Skin Skin exam: Present: warm, dry, intact, normal color. Absent: rash ED Course Vital Signs 05/20/21 05/20/21 05/20/21 14:25 14:47 17:23 Temperature 98.9 F Pulse Rate 121 H 117 H 108 H Respiratory 19 19 19 Rate Blood Pressure 171/88 Blood Pressure 168/88 144/81 [Right] O2 Sat by Pulse 99 99 99 Oximetry 05/20/21 17:55 Temperature Pulse Rate 94 H Respiratory 20 Rate Blood Pressure Blood Pressure 153/88 [Right] O2 Sat by Pulse 97 Oximetry ED Medical Decision Making - Lab Data Result diagrams: 05/20/21 14:42 05/20/21 14:42 - EKG Data -: EKG Interpreted by Me EKG shows normal: sinus rhythm, axis, intervals, QRS complexes Rate: tachycardia - EKG Data Interpretation: nonspecific ST-T wave greg 05/20/21 16:39 EKG obtained 1421 EKG interpreted by me Sinus tachycardia rate 120 bpm normal axis normal intervals no ST elevation nonspecific T wave pattern - Radiology Data Radiology results: report reviewed Patient Name: SHO SANTILLAN Gender: Female Date of : 1945 Referring Provider: MARIELA WILKES Organization: [facility] Accession Number: [id number] Requested Date: May 20, 2021 14:12 Report Status: Final Requested Procedure: 1 Procedure Description: XR chest 1V ap Modality: XR Findings Reporting MD: Maximiliano Leyva Dictation Time: May 20, 2021 13:48 Button Machine Operator: Not available Antisqueak Filler Date: CHEST 1 VIEW 05/20/2021 2:22 PM INDICATION / CLINICAL INFORMATION: Chest Pain. COMPARISON: 02/21/2021 FINDINGS: SUPPORT DEVICES: None. HEART / MEDIASTINUM: No significant abnormality. LUNGS / PLEURA: No acute findings. Stable linear scarring in the right midlung. No pneumothorax. ADDITIONAL FINDINGS: No significant additional findings. IMPRESSION: 1. No acute findings. Signer Name: Maximiliano Leyva MD Signed: 05/20/2021 1:48 PM Workstation Name: [id number] - Medical Decision Making 1. Chest pain: In the setting of nonspecific tachycardia patient required extensive work-up including CT angiogram of the chest CT abdomen pelvis. CBC showed nonspecific leukocytosis white count 12,000 D-dimer 274 chemistry revealed downtrending lactic acidosis no indication of sepsis. Patient has persistently mildly nonocclusive. Equivocal elevated troponin since April 2020 with adequate inpatient cardiac evaluation. Patient has been resting comfortably, actually sleeping throughout her ED stay. She does not appear to be in any distress. Work-up does reveal lung mass and liver masses vs liver cyst. Patient will need outpatient evaluation. . I do not suspect acute coronary syndrome. PE ruled out. Sinus tachycardia resolved without treatment. Repeat heart rate 89 bpm. Patient is discharged home. Critical care attestation.: If time is entered above; I have spent that time in minutes in the direct care of this critically ill patient, excluding procedure time. ED Disposition Clinical Impression: Acute chest pain, Lung mass, Liver masses Disposition: 09 ADMITTED INPATIENT Is pt being admited?: Yes Does the pt Need Aspirin: No Condition: Stable Instructions: Chest Pain (ED)
--- NOTE | 2021-05-20 16:50 | Cat Scan Report ---
CTA chest with contrast CT abdomen and pelvis with contrast INDICATION : chest pain tachycardia 100ml of omnipaque 350ml given. TECHNIQUE: Axial imaging performed through the chest, with contrast bolus timing set to maximize opa cification of the pulmonary arteries. 3-plane MIP reformatted images were obtained. Axial imaging als o performed through the abdomen and pelvis with intravenous contrast. All CT scans at this location a re performed using CT dose reduction for ALARA by means of automated exposure control. 100 mL of intravenous contrast administered. COMPARISON: FINDINGS: CTA chest: Contrast bolus timing is adequate with no filling defect present to suggest PTE. There is advanced at herosclerotic disease in the coronary arteries. Normal heart size. No pathologic mediastinal adenopat hy. Incidental note made of gross enlargement of the thyroid especially right of midline and posterio rly with extensive heterogeneity. There is minimal edema/atelectasis. There is also a medial left bas ilar pulmonary nodule which is spiculated and measures 1.1 on image #278 of series 6. There is no con solidation or pleural effusion. Degenerative changes are present throughout the spine and shoulders w ith nothing acute. CT abdomen/pelvis: There are several subcentimeter hypodensities throughout the liver which are technically indeterminat e; however, at least a couple of these appear to be cysts. There is one near the dome (for example se e image 14 of series #3 measuring 1.8 cm) which is indeterminate. Gallbladder surgically absent. The spleen, right adrenal gland, left kidney, and proximal GI tract appear unremarkable. Simple right renal cysts are present. 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 Fatty interdigitation is seen in the body/tail of the pancreas. The pancreas is otherwise unremarkabl e. Advanced atherosclerotic disease is present in the abdominal aorta and branch vessels. Urinary bladder is unremarkable. Uterus is heterogeneous in appearance and also demonstrates what henrique ears to be edema within the uterine wall posteriorly. Another consideration would be a fibroid. No pe lvic free fluid. There is colonic diverticulosis with no acute inflammatory change identified. The terminal ileum and appendix appear normal. There are degenerative changes throughout the spine and pelvis with no acute osseous abnormality identified. IMPRESSION: 1. Negative for PTE. 2. 1.1 cm spiculated nodule in the left lower lobe. Please see below recommendations. 3. Grossly abnormal appearance of the thyroid which is enlarged and heterogeneous. Recommend nonemerg ent thyroid ultrasound for further evaluation. 4. Indeterminate hypodensities within the liver. Given the left lower lobe pulmonary nodule, a metast atic process cannot be excluded. 5. Abnormal appearance of the uterus could be seen with fibroid disease. Correlate with pelvic exam f indings. Signer Name: Benjie Dooley MD Signed: 05/20/2021 4:46 PM Workstation Name: [id number]
[2021-05-20 17:45] LABS: Bacteria,Urine 1+ /HPF (Negative); Bilirubin,Urine NEG (Negative); Blood,Urine SM (Negative); Color,Urine Yellow (Yellow); Mucus,Urine 1+ /HPF; Urobilinogen,Urine < 2.0 mg/dL (<2.0)
--- NOTE | 2021-05-20 20:06 | History and Physical Report ---
History of Present Illness Date of admission: 05/20/21 19:09 Chief complaint: My chest hurts History of present illness: 75 YO Female [facility] Facility Resident at [facility] floridalma HICKMAN on DAPT, Debility, Hypothyroidism, UC, Seizure Disorder, GERD, HTN, OA presents to ED for evaluation. Patient reports "my chest hurts. Patient states that she has experienced pain in her chest over the past 6 hours with persistent symptoms over the same timeframe. Patient states that pain is 5/10, constant, not worsened with exertion, not relieved with rest. EMS was notified and upon arrival the patient was found to be in distress and subsequently transported to [facility] for further care and evaluation of the aforementioned symptoms. The patient was seen and evaluated in the emergency department. All lab and imaging studies reviewed. Upon further evaluation the patient localizes an area in the epigastric region as a source of her pain. Patient found to have urinary tract infection, atypical chest pain suspected secondary to gastroesophageal reflux disease. patient placed in observation status and admitted to medical floor. Patient initiated on IV antibiotic t herapy as well as PPI therapy. Patient denies fever, chills, palpitation, productive cough, skin rash, recent ill contacts, known exposure to COVID-19. Patient is fully vaccinated against COVID-19. Advanced care planning conducted in ED. prior admission on 02-02-21 reviewed. Stress test results reviewed. Past History Past Medical History: GERD, hypertension, seizures, other (See HPI) Past Surgical History: No surgical history, Other (Reviewed) Social history: single. denies: smoking, alcohol abuse, prescription drug abuse Family history: diabetes, hypertension Medications and Allergies Allergies Allergy/AdvReac Type Severity Reaction Status Date / Time No Known Allergies Allergy Verified 02/22/21 01:57 Home Medications Medication Instructions Recorded Confirmed Last Taken Type Candesartan Cilexetil [Atacand] 16 mg PO DAILY 04/12/20 02/23/21 Unknown History Clopidogrel [Plavix] 75 mg PO QDAY 04/12/20 02/23/21 Unknown History Glucagon (Human Recomb) [Glucagen] 1 mg SUB-Q QAM&QHS 04/12/20 02/23/21 Unknown History Insulin Detemir [Levemir VIAL] 24 unit SUB-Q DAILY 04/12/20 02/23/21 Unknown History Levothyroxine [Synthroid] 50 mcg PO DAILY 04/12/20 02/23/21 Unknown History NIFEdipine [Nifedipine ER] 90 mg PO DAILY 04/12/20 02/23/21 Unknown History Pantoprazole [Protonix TAB] 20 mg QDAY 04/12/20 02/23/21 Unknown History Aspirin EC [Halfprin EC] 81 mg PO QDAY #30 tablet. 04/16/20 02/23/21 Unknown Rx AtorvaSTATin [Lipitor] 40 mg PO QHS tablet 04/16/20 02/23/21 Unknown Rx Docusate Sodium [Colace CAP] 100 mg PO BID capsule 04/16/20 02/23/21 Unknown Rx Losartan [Cozaar] 100 mg PO QAM tablet 04/16/20 02/23/21 Unknown Rx Magnesium Hydroxide [Milk of 30 ml PO Q4H PRN oral.liqd 04/16/20 02/23/21 Unknown Rx Magnesia] Metoprolol Xl [Metoprolol 100 mg PO QDAY tablet 04/16/20 02/23/21 Unknown Rx SUCCINATE ER TAB] hydrALAZINE [Apresoline TAB] 25 mg PO Q8HR tablet 04/16/20 02/23/21 Unknown Rx levETIRAcetam [Keppra TAB] 1,000 mg PO BID #60 tab 04/16/20 02/23/21 Unknown Rx Acetaminophen [Acetaminophen TAB] 650 mg PO Q4H PRN tablet 02/23/21 Unknown Rx Antacid [Alum-Mag Hydrox-Simeth 30 ml PO Q4H PRN oral.liqd 02/23/21 Unknown Rx [id number]/[id number]] Aspirin EC [Halfprin EC] 81 mg PO QDAY tablet 02/23/21 Unknown Rx AtorvaSTATin [Lipitor] 40 mg PO QHS tablet 02/23/21 Unknown Rx Clopidogrel [Plavix] 75 mg PO QDAY tablet 02/23/21 Unknown Rx Insulin Glargine [Lantus VIAL] 24 units SUB-Q QHS units 02/23/21 Unknown Rx Levothyroxine [Synthroid] 50 mcg PO DAILY@0600 tablet 02/23/21 Unknown Rx Losartan [Cozaar] 100 mg PO QDAY tablet 02/23/21 Unknown Rx Magnesium Hydroxide [Milk of 30 ml PO Q4H PRN oral.liqd 02/23/21 Unknown Rx Magnesia] Pantoprazole [Protonix TAB] 40 mg PO QDAY tablet 02/23/21 Unknown Rx carvediloL [Coreg] 3.125 mg PO BID tablet 02/23/21 Unknown Rx hydrALAZINE [Apresoline TAB] 50 mg PO Q8HR tablet 02/23/21 Unknown Rx traMADoL [Ultram 50 MG tab] 50 mg PO Q6H PRN tablet 02/23/21 Unknown Rx Review of Systems Constitutional: no weight loss, no weight gain, no fever, no chills Ears, nose, mouth and throat: no ear pain, no tinnitis, no nose pain, no nasal congestion Breasts: no swelling Cardiovascular: chest pain, no orthopnea, no palpitations, no rapid/irregular heart beat, no shortness of breath, no dyspnea on exertion Respiratory: no cough, no cough with sputum, no excessive sputum Gastrointestinal: no abdominal pain, no nausea, no vomiting, no diarrhea, no constipation Genitourinary Female: no pelvic pain, no flank pain, no dysuria, no urinary f requency, no urgency Rectal: no pain, no incontinence, no bleeding Musculoskeletal: no neck stiffness, no neck pain, no shooting arm pain, no low back pain Integumentary: no rash, no pruritis, no redness, no sores, no wounds, no jaundice Neurological: no transient paralysis, no paralysis, no parathesias, no numbness, no seizures Psychiatric: no anxiety, no memory loss, no sleep disturbances, no insomnia Endocrine: no cold intolerance, no polyphagia, no excessive thirst, no polyuria, no nocturia Hematologic/Lymphatic: no easy bruising, no easy bleeding Allergic/Immunologic: no urticaria Exam - Constitutional Vitals: Temp Pulse Resp BP Pulse Ox 98.9 F 94 H 20 153/88 97 05/20/21 14:25 05/20/21 17:55 05/20/21 17:55 05/20/21 17:55 05/20/21 17:55 General appearance: Present: mild distress - EENT Eyes: Present: PERRL ENT: hearing intact, clear oral mucosa - Neck Neck: Present: supple, normal ROM - Respiratory Respiratory effort: normal Respiratory: bilateral: CTA - Cardiovascular Heart Sounds: Present: S1 & S2. Absent: rub, click - Extremities Extremities: pulses symmetrical, No edema Peripheral Pulses: within normal limits - Abdominal General gastrointestinal: Present: soft, non-tender, non-distended, normal bowel sounds Female genitourinary: Present: normal - Integumentary Integumentary: Present: clear, warm, dry - Musculoskeletal Musculoskeletal: gait normal, strength equal bilaterally - Psychiatric Psychiatric: appropriate mood/affect, intact judgment & insight - Neurologic Neurologic: CNII-XII intact, moves all extremities HEART Score - HEART Score EKG: Non-specific Age: > 65 Risk factors: 1-2 risk factors Troponin: Troponin T 0.078 ng/mL (0.00-0.029) H D 05/20/21 16:32 Troponin: < normal limit - Critical Actions Critical Actions: 4-6 pts:12-16.6% risk of adverse cardiac event. Should be admitted Results - Labs CBC & Chem 7: 05/20/21 14:42 05/20/21 14:42 Labs: Abnormal lab results 05/20/21 05/20/21 05/20/21 Range/Units 14:42 14:42 14:42 WBC 12.1 H (4.5-11.0) K/mm3 MCH 26 L (28-32) pg RDW 15.4 H (13.2-15.2) % Plt Count 463 H (140-440) K/mm3 Seg Neutrophils % 78.3 H (40.0-70.0) % Seg Neutrophils # 9.4 H (1.8-7.7) K/mm3 D-Dimer 274.24 H (0-234) ng/mlDDU Glucose 207 H (65-100) mg/dL Lactic Acid (0.7-2.0) mmol/L Alkaline Phosphatase 161 H (35-129) units/L Troponin T 0.062 H (0.00-0.029) ng/mL Total Protein 8.5 H (6.3-8.2) g/dL Albumin 3.6 L (3.9-5) g/dL Triglycerides 167 H (2-149) mg/dL LDL Cholesterol Direct 48 L (50-130) mg/dL HDL Cholesterol 36 L (40-59) mg/dL TSH (0.270-4.200) mlU/mL Urine WBC (Auto) (0.0-6.0) /HPF U Epithel Cells (Auto) (0-13.0) /HPF 05/20/21 05/20/21 05/20/21 Range/Units 14:42 14:42 16:32 WBC (4.5-11.0) K/mm3 MCH (28-32) pg RDW (13.2-15.2) % Plt Count (140-440) K/mm3 Seg Neutrophils % (40.0-70.0) % Seg Neutrophils # (1.8-7.7) K/mm3 D-Dimer (0-234) ng/mlDDU Glucose (65-100) mg/dL Lactic Acid 2.50 H* (0.7-2.0) mmol/L Alkaline Phosphatase (35-129) units/L Troponin T 0.078 H D (0.00-0.029) ng/mL Total Protein (6.3-8.2) g/dL Albumin (3.9-5) g/dL Triglycerides (2-149) mg/dL LDL Cholesterol Direct (50-130) mg/dL HDL Cholesterol (40-59) mg/dL TSH 0.009 L (0.270-4.200) mlU/mL Urine WBC (Auto) (0.0-6.0) /HPF U Epithel Cells (Auto) (0-13.0) /HPF 05/20/21 Range/Units Unknown WBC (4.5-11.0) K/mm3 MCH (28-32) pg RDW (13.2-15.2) % Plt Count (140-440) K/mm3 Seg Neutrophils % (40.0-70.0) % Seg Neutrophils # (1.8-7.7) K/mm3 D-Dimer (0-234) ng/mlDDU Glucose (65-100) mg/dL Lactic Acid (0.7-2.0) mmol/L Alkaline Phosphatase (35-129) units/L Troponin T (0.00-0.029) ng/mL Total Protein (6.3-8.2) g/dL Albumin (3.9-5) g/dL Triglycerides (2-149) mg/dL LDL Cholesterol Direct (50-130) mg/dL HDL Cholesterol (40-59) mg/dL TSH (0.270-4.200) mlU/mL Urine WBC (Auto) 10.0 H (0.0-6.0) /HPF U Epithel Cells (Auto) 47.0 H (0-13.0) /HPF Assessment and Plan - Patient Problems (1) Atypical chest pain Current Visit: Yes Status: Acute Plan to address problem: Serial cardiac enzymes, EKG, elevated but no significant change since previous evaluation. Stress test from previous admission reviewed. Cardiology note from previous admission reviewed. Continue blood pressure control, supportive care. (2) Gastroesophageal reflux disease Current Visit: Yes Status: Acute Plan to address problem: PPI therapy increased to twice daily, supportive care. Carafate nightly. Outpatient GI follow-up. (3) UTI (urinary tract infection) Current Visit: Yes Status: Acute Qualifiers: Encounter type: initial encounter Plan to address problem: IV antibiotic therapy, urinalysis, (4) DVT prophylaxis Current Visit: Yes Status: Acute Plan to address problem: SCD to bilateral lower extremities while in bed (5) Advance care planning Current Visit: Yes Status: Acute Plan to address problem: Disease education done, care plan discussed, diagnosis discussed, prognosis discussed, patient is full code, patient knowledges understanding agree with care plan, +30 minutes.
[2021-05-20] MEDS ORDERED: ALBUTEROL 2.5 MG/3 ML NEBU IH PRN (20:38)
[2021-05-20] MEDS ORDERED: ACETAMINOPHEN 325 MG TAB PO PRN (20:38)
[2021-05-20] MEDS ORDERED: HYDROmorphone 1 MG/1 ML INJ IV PRN (20:38)
[2021-05-20] MEDS ORDERED: ONDANSETRON 4 MG/2 ML INJ IV PRN (20:38)
[2021-05-20] MEDS ORDERED: oxyCODONE /ACETAMINOPHEN 5-325MG TAB PO PRN ×2 (20:38→22:00)
[2021-05-20] MEDS ORDERED: MAGNESIUM HYDROXIDE (MOM) ORAL LIQD UDC PO PRN (20:40)
[2021-05-20] MEDS ORDERED: ALUM-MAG HYDROXIDE-SIMETHICONE 200-200-20MG/5ML ORAL LIQD 30 ML PO PRN (20:40)
[2021-05-20] MEDS ORDERED: DEXTROSE 50% IN WATER (25GM) 50 ML SYRINGE IV PRN (20:42)
[2021-05-20] MEDS ORDERED: GLUCAGON (HUMAN RECOMBINANT) 1 MG/ML INJ SUB-Q SCH (21:00)
[2021-05-20] MEDS ORDERED: MORPHINE 2 MG/1 ML INJ IV PRN (21:42)
[2021-05-20] MEDS ORDERED: cefTRIAXone/NS 1 GM/50 ML 1 GM/50 ML BAG IV ONE (22:59)
[2021-05-20] MEDS: hydrALAZINE 25 MG TAB PO SCH (23:50)
[2021-05-20] MEDS: DOCUSATE SODIUM 100 MG CAP PO SCH (23:50)
[2021-05-20] MEDS: levETIRAcetam 500 MG TAB PO SCH (23:50)
[2021-05-20] MEDS: cefTRIAXone/NS 1 GM/50 ML 1 GM/50 ML BAG IV SCH (23:56)
[2021-05-21] MEDS: PANTOPRAZOLE 40 MG TAB PO SCH ×3 (00:37→17:02)
[2021-05-21] MEDS: carvediloL 3.125 MG TAB PO SCH ×3 (00:38→17:02)
[2021-05-21] MEDS: SUCRALFATE 1 GM TAB PO SCH ×5 (00:39→21:08)
[2021-05-21] MEDS: INSULIN LISPRO 100 UNIT/ML SUB-Q SCH ×5 (01:15→21:11)
[2021-05-21] MEDS: LEVOTHYROXINE 50 MCG TAB PO SCH (06:09)
[2021-05-21] MEDS: hydrALAZINE 25 MG TAB PO SCH ×3 (06:09→21:09)
[2021-05-21] MEDS ORDERED: CANDESARTAN CILEXETIL 16 MG PO SCH (10:00)
[2021-05-21] MEDS: ASPIRIN EC 81 MG TAB PO SCH (10:38)
[2021-05-21] MEDS: NIFEdipine XL 90 MG TAB PO SCH (10:38)
[2021-05-21] MEDS: CLOPIDOGREL 75 MG TAB PO SCH (10:38)
[2021-05-21] MEDS: levETIRAcetam 500 MG TAB PO SCH ×2 (10:38→21:08)
[2021-05-21] MEDS: LOSARTAN 50 MG TAB PO SCH (10:38)
[2021-05-21] MEDS: DOCUSATE SODIUM 100 MG CAP PO SCH ×2 (10:38→21:08)
[2021-05-21] MEDS: cefTRIAXone/NS 1 GM/50 ML 1 GM/50 ML BAG IV SCH (10:45)
--- NOTE | 2021-05-21 13:48 | Progress Note ---
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, bedbound -We will discharge to SNF #Hypothyroidism -CTA showed abnormal appearance of the thyroid -we will need thyroid ultrasound outpatient -TSH low -continue levothyroxine #Hypertension -Continue home blood pressure medications #Pulmonary nodule -1.1 cm spiculated nodule at the left lower lobe seen on CT -We will need pulmonary follow-up outpatient #Type 2 diabetes -Takes Lantus 25 units light nightly outpatient -glucose 142-205 here -will start sliding scale insulin #UTI -continue rocephin #History CVA -continue home statin + ASA Disposition Plan: SNF Total Time Spent with Patient (Minutes): 30 minutes History Interval history: No further episodes of chest pain. Patient comfortable. Denies shortness of breath, nausea vomiting. Hospitalist Physical - Physical exam Narrative exam: GENERAL: Well-developed well-nourished. Lying in bed in no acute distress. CHEST/LUNGS: CTAB on room air HEART/CARDIOVASCULAR: RRR. No murmur, rubs or gallops appreciated. ABDOMEN: +BS. NT/ND. SKIN: No rashes noted. NEURO: Significant left upper and lower extremity weakness. Normal range of m otion and strength on the right. EXTREMITIES: No cyanosis, clubbing or edema. PSYCH: Cooperative. - Constitutional Vitals: Temp Pulse Resp BP Pulse Ox 98.6 F 97 H 18 179/73 97 05/21/21 11:39 05/21/21 12:00 05/21/21 11:39 05/21/21 11:39 05/21/21 12:00 General appearance: Present: mild distress - Allied Health Allied health notes reviewed: nursing HEART Score - HEART Score EKG: Non-specific Age: > 65 Risk factors: 1-2 risk factors Troponin: Troponin T 0.078 ng/mL (0.00-0.029) H D 05/20/21 16:32 Troponin: < normal limit - Critical Actions Critical Actions: 4-6 pts:12-16.6% risk of adverse cardiac event. Should be admitted Results - Labs CBC & Chem 7: 05/20/21 14:42 05/20/21 14:42 Labs: Laboratory Last Values WBC 12.1 K/mm3 (4.5-11.0) H 05/20/21 14:42 RBC 4.10 M/mm3 (3.65-5.03) 05/20/21 14:42 Hgb 10.5 gm/dl (10.1-14.3) 05/20/21 14:42 Hct 32.3 % (30.3-42.9) 05/20/21 14:42 MCV 79 fl (79-97) 05/20/21 14:42 MCH 26 pg (28-32) L 05/20/21 14:42 MCHC 33 % (30-34) 05/20/21 14:42 RDW 15.4 % (13.2-15.2) H 05/20/21 14:42 Plt Count 463 K/mm3 (140-440) H 05/20/21 14:42 Lymph % (Auto) 14.5 % (13.4-35.0) 05/20/21 14:42 [place] % (Auto) 3.5 % (0.0-7.3) 05/20/21 14:42 Eos % (Auto) 3.0 % (0.0-4.3) 05/20/21 14:42 Baso % (Auto) 0.7 % (0.0-1.8) 05/20/21 14:42 Lymph # (Auto) 1.7 K/mm3 (1.2-5.4) 05/20/21 14:42 [place] # (Auto) 0.4 K/mm3 (0.0-0.8) 05/20/21 14:42 Eos # (Auto) 0.4 K/mm3 (0.0-0.4) 05/20/21 14:42 Baso # (Auto) 0.1 K/mm3 (0.0-0.1) 05/20/21 14:42 Seg Neutrophils % 78.3 % (40.0-70.0) H 05/20/21 14:42 Seg Neutrophils # 9.4 K/mm3 (1.8-7.7) H 05/20/21 14:42 D-Dimer 274.24 ng/mlDDU (0-234) H 05/20/21 14:42 Sodium 139 mmol/L (137-145) 05/20/21 14:42 Potassium 4.1 mmol/L (3.6-5.0) 05/20/21 14:42 Chloride 103.0 mmol/L (98-107) 05/20/21 14:42 Carbon Dioxide 29 mmol/L (22-30) 05/20/21 14:42 Anion Gap 11 mmol/L 05/20/21 14:42 BUN 15 mg/dL (7-17) 05/20/21 14:42 Creatinine 0.9 mg/dL (0.6-1.2) 05/20/21 14:42 Estimated GFR > 60 ml/min 05/20/21 14:42 BUN/Creatinine Ratio 17 % 05/20/21 14:42 Glucose 207 mg/dL (65-100) H 05/20/21 14:42 POC Glucose 154 mg/dL (70-105) H 05/21/21 13:00 Lactic Acid 1.80 mmol/L (0.7-2.0) 05/20/21 16:52 Calcium 8.7 mg/dL (8.4-10.2) 05/20/21 14:42 Total Bilirubin < 0.20 mg/dL (0.1-1.2) 05/20/21 14:42 AST 27 units/L (5-40) 05/20/21 14:42 ALT 21 units/L (7-56) 05/20/21 14:42 Alkaline Phosphatase 161 units/L (35-129) H 05/20/21 14:42 Troponin T 0.078 ng/mL (0.00-0.029) H D 05/20/21 16:32 NT-Pro-B Natriuret Pep 218.8 pg/mL (0-900) 05/20/21 14:42 Total Protein 8.5 g/dL (6.3-8.2) H 05/20/21 14:42 Albumin 3.6 g/dL (3.9-5) L 05/20/21 14:42 Albumin/Globulin Ratio 0.7 % 05/20/21 14:42 Triglycerides 167 mg/dL (2-149) H 05/20/21 14:42 Cholesterol 104 mg/dL (50-199) 05/20/21 14:42 LDL Cholesterol Direct 48 mg/dL (50-130) L 05/20/21 14:42 HDL Cholesterol 36 mg/dL (40-59) L 05/20/21 14:42 Cholesterol/HDL Ratio 2.88 % 05/20/21 14:42 TSH 0.009 mlU/mL (0.270-4.200) L 05/20/21 14:42 Urine Color Yellow (Yellow) 05/20/21 Unknown Urine Turbidity Cloudy (Clear) 05/20/21 Unknown Urine pH 6.0 (5.0-7.0) 05/20/21 Unknown Ur Specific [place] 1.025 (1.003-1.030) 05/20/21 Unknown Urine Protein 100 mg/dl mg/dL (Negative) 05/20/21 Unknown Urine Glucose (UA) Neg mg/dL (Negative) 05/20/21 Unknown Urine Ketones Neg mg/dL (Negative) 05/20/21 Unknown Urine Blood Sm (Negative) 05/20/21 Unknown Urine Nitrite Neg (Negative) 05/20/21 Unknown Urine Bilirubin Neg (Negative) 05/20/21 Unknown Urine Urobilinogen < 2.0 mg/dL (<2.0) 05/20/21 Unknown Ur Leukocyte Esterase Sm (Negative) 05/20/21 Unknown Urine WBC (Auto) 10.0 /HPF (0.0-6.0) H 05/20/21 Unknown Urine RBC (Auto) 5.0 /HPF (0.0-6.0) 05/20/21 Unknown U Epithel Cells (Auto) 47.0 /HPF (0-13.0) H 05/20/21 Unknown Urine Bacteria (Auto) 1+ /HPF (Negative) 05/20/21 Unknown Urine Mucus 1+ /HPF 05/20/21 Unknown Microbiology: Microbiology 05/20/21 Unknown Urine,Clean Catch Urine Culture - Preliminary NO GROWTH AFTER 24 HOURS 05/20/21 14:47 Peripheral/Venous Blood Culture - Preliminary Culture in Progress 05/20/21 14:42 Peripheral/Venous Blood Culture - Preliminary Culture in Progress Mahajan/IV: Voiding Method External Female Catheter Active Medications - Current Medications Current Medications: Generic Name Dose Route Start Last Admin Trade Name Freq PRN Reason Stop Dose Admin Acetaminophen 650 mg 05/20/21 20:38 Acetaminophen 325 Mg Tab PO Q4H PRN Pain MILD(1-3)/Fever >100.5/CARRANZA Al Hydrox/Mg Hydrox/Simethicone 30 ml 05/20/21 20:40 Alum-Mag Hydroxide-Simethicone [phone]/5ml Oral Liqd 30 Ml PO Q4H PRN Indigestion Albuterol 2.5 mg 05/20/21 20:38 Albuterol 2.5 Mg/3 Ml Nebu IH Q4HRT PRN Shortness Of Breath Aspirin 81 mg 05/21/21 10:00 05/21/21 10:38 Aspirin Ec 81 Mg Tab PO 81 mg QDAY JORDON Administration Atorvastatin Calcium 40 mg 05/20/21 22:00 05/20/21 23:51 Atorvastatin 40 Mg Tab PO 40 mg QHS JORDON Administration Carvedilol 3.125 mg 05/20/21 22:00 05/21/21 10:39 Carvedilol 3.125 Mg Tab PO 3.125 mg BID@0800,1700 JRODON Administration Clopidogrel Bisulfate 75 mg 05/21/21 10:00 05/21/21 10:38 Clopidogrel 75 Mg Tab PO 75 mg QDAY JORDON Administration Dextrose 0 ml 05/20/21 20:42 Dextrose 50% In Water (25gm) 50 Ml Syringe IV Q30MIN PRN Hypoglycemia Protocol Docusate Sodium 100 mg 05/20/21 22:00 05/21/21 10:38 Docusate Sodium 100 Mg Cap PO 100 mg BID JORDON Administration Hydralazine HCl 25 mg 05/20/21 22:00 05/21/21 06:09 Hydralazine 25 Mg Tab PO 25 mg Q8HR JORDON Administration Ceftriaxone Sodium 1 gm in 50 mls @ 100 mls/hr 05/20/21 20:46 05/21/21 10:45 Rocephin/Ns 1 Gm/50 Ml IV 100 mls/hr Q24HR JORDON Administration Protocol Insulin Human Lispro 0 unit 05/21/21 00:00 05/21/21 06:31 Insulin Lispro 100 Unit/Ml SUB-Q 4 unit Q6HR JORDON Administration Protocol Levetiracetam 1,000 mg 05/20/21 22:00 05/21/21 10:38 Levetiracetam 500 Mg Tab PO 1,000 mg BID JORDON Administration Levothyroxine Sodium 50 mcg 05/21/21 06:00 05/21/21 06:09 Levothyroxine 50 Mcg Tab PO 50 mcg DAILY@0600 JORDON Administration Losartan Potassium 100 mg 09/18/21 10:00 05/21/21 10:38 Losartan 50 Mg Tab PO 100 mg QAM JORDON Administration Magnesium Hydroxide 30 ml 05/20/21 20:40 Magnesium Hydroxide (Mom) Oral Liqd Udc PO Q4H PRN Constipation Morphine Sulfate 2 mg 05/20/21 21:42 Morphine 2 Mg/1 Ml Inj IV Q6H PRN Pain , Severe (7-10) Nifedipine 90 mg 05/21/21 08:00 05/21/21 10:38 Nifedipine Xl 90 Mg Tab PO 90 mg DAILY@0800 JORDON Administration Ondansetron HCl 4 mg 05/20/21 20:38 Ondansetron 4 Mg/2 Ml Inj IV Q8H PRN Nausea And Vomiting Oxycodone/Acetaminophen 1 tab 05/20/21 22:00 05/21/21 00:38 Oxycodone /Acetaminophen 5-325mg Tab PO 1 tab Q8H PRN Administration Pain, Moderate (4-6) Pantoprazole Sodium 40 mg 05/20/21 22:00 05/21/21 10:45 Pantoprazole 40 Mg Tab PO 40 mg BIDAC JORDON Administration Sodium Chloride 10 ml 05/20/21 22:00 05/21/21 10:39 Sodium Chloride 0.9% 10 Ml Flush Syringe IV 10 ml BID JORDON Administration Sodium Chloride 10 ml 05/20/21 20:38 Sodium Chloride 0.9% 10 Ml Flush Syringe IV PRN PRN LINE FLUSH Sucralfate 1 gm 05/20/21 22:00 05/21/21 10:38 Sucralfate 1 Gm Tab PO 1 gm ACHS JORDON Administration
[2021-05-21] MEDS ORDERED: DEXTROSE 50% IN WATER (25GM) 50 ML SYRINGE IV PRN (14:22)
--- NOTE | 2021-05-21 14:50 | Electrocardiograph Report ---
[facility] Test Date: 2021-05-20 Test Time: 14:21:13 Pat Name: SHO HEAD Department: Room: A486 1 Gender: F [employer] Instructor: [id number] : 1945 Requested By: MARIELA WILKES Order Number: [id number] Reading MD: Haim Muller Measurements Intervals [place] Rate: 121 P: 47 OR: 135 QRS: 1 QRSD: 85 T: 147 QT: 304 QTc: 432 Interpretive Statements Sinus tachycardia Probable LVH with secondary repol abnrm Compared to ECG 02/22/2021 11:51:06 Sinus rhythm no longer present Electronically Signed On 05-21-2021 14:50:05 EDT by Haim Muller
[2021-05-22] MEDS: LEVOTHYROXINE 50 MCG TAB PO SCH (06:13)
[2021-05-22] MEDS: hydrALAZINE 25 MG TAB PO SCH (06:13)
--- NOTE | 2021-05-22 08:19 | Discharge Summary ---
Providers - Providers Date of Admission: 05/20/21 19:09 Date of discharge: 05/22/21 Attending physician: ADELAIDA REILLY MD Primary care physician: [employer] Hospitalization Condition: Stable Hospital course: 75-year-old female history of debility, CVA, hypothyroidism and hypertension who was admitted for chest pain on 05/20. Chest pain was determined to be atypical in nature. PPI was started. Previous stress test and echo from previous admission in February was reviewed. CTA, chest x-ray , troponin was negative. EKG did not show any acute changes. CT abdomen pelvis showed a 1.1 cm spiculated nodule in the left lower lobe, hypodensities in the liver and an enlarged thyroid. Patient denied these findings in the past. Patient and son was u pdated about needed outpatient follow-up for the above findings. [facility] Dis[facility] Final Discharge Diagnosis (Prints w/discharge instructions): Atypical Chest Pain. Pulmonary Nodule. Type 2 Diabetes Time spent for discharge: 20 minutes Core Measure Documentation - Palliative Care Palliative Care/ Comfort Measures: Not Applicable - Core Measures Any of the following diagnoses?: none - VTE Discharge Requirements Deep Vein Thrombosis/Pulmonary Embolism Present on Admission: No Has pt received <5 days of overlap therapy or INR<2.0: No Anticoagulant overlap therapy prescribed at discharge: No Contraindication No Overlap Therapy order at DC: Not Indicated - Acute [place] Discharge Requirements JEANETH/ARB for LVSD if EF <40%: Yes Beta tiana at discharge: Yes Statin for LDL = or >100 mg/dl on DC: Yes - Heart Failure Discharge Requirements Beta tiana at discharge: Yes - Stroke Discharge Requirements Statin for LDL = or >70 mg/dl on DC: Yes Anticoag for atrial fib/atrial flutter: Not Applicable Antithrombotic for ischemic stroke: No Reason for no antithrombotic on DC: Not Indicated Exam - Constitutional Vitals: Temp Pulse Resp BP Pulse Ox 98.0 F 89 20 150/70 93 05/22/21 04:18 05/22/21 04:18 05/22/21 04:18 05/22/21 06:13 05/22/21 04:18 Plan Assessment: Improved. Patient presented with atypical chest pain that resolved and has not recurred. Stress test and echo reviewed from previous admission. CTA negative, but showed an enlarged thyroid and pulmonary nodule. [facility] with resumption of home medications. She will need to follow up with her PCP for outpatient thyroid ultrasound and with Pulmonology f or evaluation of pulmonary nodule. Follow up with: PRIMARY CARE, [Primary Care Provider] - 7 Days (Patient will need an ultrasound of her thyroid, thyromegaly seen on imaging. A 1.1cm spiculated nodule was seen at the left lower lobe of the lung along with hypodensities within the liver. )
[2021-05-22 08:39] VITALS: BP 154/42
[2021-05-22] MEDS: INSULIN LISPRO 100 UNIT/ML SUB-Q SCH (10:00)
[2021-05-22] MEDS: cefTRIAXone/NS 1 GM/50 ML 1 GM/50 ML BAG IV SCH (10:59)
[2021-05-22] MEDS: LOSARTAN 50 MG TAB PO SCH (11:07)
[2021-05-22] MEDS: DOCUSATE SODIUM 100 MG CAP PO SCH (11:10)
[2021-05-22] MEDS: ASPIRIN EC 81 MG TAB PO SCH (11:10)
[2021-05-22] MEDS: SUCRALFATE 1 GM TAB PO SCH ×2 (11:11→11:52)
[2021-05-22] MEDS: CLOPIDOGREL 75 MG TAB PO SCH (11:12)
[2021-05-22] MEDS: levETIRAcetam 500 MG TAB PO SCH (11:12)
[2021-05-22] MEDS: NIFEdipine XL 90 MG TAB PO SCH (11:57)
[2021-05-22] MEDS: carvediloL 3.125 MG TAB PO SCH (11:57)
[2021-05-22] MEDS: PANTOPRAZOLE 40 MG TAB PO SCH (11:57)
== END 2021-05-22 12:30 ==
LOC: ED 13:51 → 4A 19:09
PROVIDERS: ADMIT Internal Medicine; ATTEND Student in an Organized Health Care Education/Training Program
DX: I24.9 Acute ischemic heart disease, unspecified (principal); K21.9 Gastro-esophageal reflux disease without esophagitis; N39.0 Urinary tract infection, site not specified; R56.9 Unspecified convulsions; E11.9 Type 2 diabetes mellitus without complications; E03.9 Hypothyroidism, unspecified; I63.9 Cerebral infarction, unspecified; R53.81 Other malaise; R07.89 Other chest pain; K51.90 Ulcerative colitis, unspecified, without complications; R91.1 Solitary pulmonary nodule; R16.0 Hepatomegaly, not elsewhere classified; R91.8 Other nonspecific abnormal finding of lung field; N85.8 Other specified noninflammatory disorders of uterus; M19.90 Unspecified osteoarthritis, unspecified site; R29.700 NIHSS score 0; Z79.4 Long term (current) use of insulin; Z79.82 Long term (current) use of aspirin; Z79.02 Long term (current) use of antithrombotics/antiplatelets; Z86.73 Personal history of transient ischemic attack (TIA), and cerebral infarction without residual deficits
CPT/HCPCS: 36415; 71045; 71275; 74177; 80053; 80061; 81001; 82140; 82962; 83880; 84443; 84484; 85025; 85379; 87040; 87086; 93005; 96365; 96366; 99285; A9270; G0378; J0696; Q9967; J1815